=== PATIENT | male | born 1970 | race Caucasian/White ===

== ENCOUNTER 2017-01-02 10:06 | Inpatient (IN) | payer OTHER ==
--- NOTE | 2017-01-02 11:01 | Emergency Department Report ---
HPI - General Chief Complaint: Chest Pain Time Seen by Provider: 01/02/17 10:49 - HPI HPI: Room 10 The patient is a 46-year-old male presenting with a chief complaint of chest pain. The patient states he was at work when he smelled "a chemical" in the air which made him feel dizzy. The patient states he lost consciousness and when he came to he had pain in the substernal chest described as sharp in nature. Patient admits to shortness of breath and diaphoresis with this chest pain. Patient states she became nauseous but did not vomit. The patient states she still has chest pain and gives it a score of 6/10. The patient states his last stress test occurred in over 10 years ago. The patient states she's never had a cardiac catheterization Location: Chest, see above Duration: Constant Quality: Sharp Severity: 6/10 Modifying factors: [see above] Context: [see above] Mode of transportation: [not driving] ED Past Medical Hx - Past Medical History Previous Medical History?: Yes Hx Hypertension: Yes Hx Seizures: Yes Hx Asthma: Yes - Surgical History Past Surgical History?: No Additional Surgical History: Jersey Foot - Family History Family history: no significant - Social History Smoking Status: Never Smoker Substance Use Type: None - Medications Home Medications: Home Medications Medication Instructions Recorded Confirmed Last Taken Type No Known Home Medications [No 01/02/17 01/02/17 Unknown History Reported Home Medications] ED Review of Systems ROS: Stated complaint: INHALATION OF CHEMICALS Other details as noted in HPI Comment: All other systems reviewed and negative Constitutional: diaphoresis Eyes: denies: eye pain, eye discharge, vision change ENT: denies: ear pain, throat pain Respiratory: shortness of breath Cardiovascular: chest pain Endocrine: no symptoms reported Gastrointestinal: nausea. denies: vomiting Genitourinary: denies: urgency, dysuria Musculoskeletal: denies: back pain, joint swelling, arthralgia Skin: denies: rash, lesions Neurological: other (dizziness, syncope) Psychiatric: denies: anxiety, depression Hematological/Lymphatic: denies: easy bleeding, easy bruising Physical Exam - Physical Exam Vital Signs: Vital Signs 01/02/17 10:36 Temperature 98.5 F Pulse Rate 85 Respiratory 20 Rate Blood Pressure 174/113 O2 Sat by Pulse 97 Oximetry Physical Exam: GENERAL: The patient is well-developed well-nourished male lying on stretcher not appearing to be in acute distress. [] HEENT: Normocephalic. Atraumatic. Extraocular motions are intact. Patient has moist mucous membranes. NECK: Supple. Trachea midline CHEST/LUNGS: Clear to auscultation. There is no respiratory distress noted. HEART/CARDIOVASCULAR: Regular. There is no tachycardia. There is no gallop rub or murmur. ABDOMEN: Abdomen is soft, nontender. Patient has normal bowel sounds. There is no abdominal distention. SKIN: There is no rash. There is no edema. There is no diaphoresis. NEURO: The patient is awake, alert, and oriented. The patient is cooperative. The patient has no focal neurologic deficits. The patient has normal speech. Cranial nerves II through XII grossly intact no drift. MUSCULOSKELETAL: There is no evidence of acute injury. ED Course Vital Signs 01/02/17 10:36 Temperature 98.5 F Pulse Rate 85 Respiratory 20 Rate Blood Pressure 174/113 O2 Sat by Pulse 97 Oximetry - Consultations Consultation #1: 01/02/17 12:02 Case discussed with hospitalist Dr. Pena. Recommends consulting cardiology. Cardiology paged 01/02/17 12:[address] Samuel ED Medical Decision Making - Lab Data Result diagrams: 01/02/17 10:51 01/02/17 10:51 Laboratory Tests 01/02/17 01/02/17 01/02/17 10:51 10:51 11:00 WBC 9.2 RBC 4.81 Hgb 14.1 Hct 42.4 MCV 88 MCH 29 MCHC 33 RDW 15.0 Lymph % (Auto) 17.2 Maury % (Auto) 6.9 Eos % (Auto) 1.2 Baso % (Auto) 0.5 Lymph # 1.6 Maury # 0.6 Eos # 0.1 Baso # 0.0 Seg Neutrophils % 74.2 H Seg Neutrophils # 6.8 PT 13.4 INR 1.03 APTT 23.1 L Sodium 141 Potassium 4.2 Chloride 101.9 Carbon Dioxide 24 Anion Gap 19 BUN 24 H Creatinine 1.2 Estimated GFR > 60 BUN/Creatinine Ratio 20.00 Glucose 94 Calcium 9.2 Troponin T < 0.010 - EKG Data -: EKG Interpreted by Mn EKG shows normal: sinus rhythm Rate: normal - EKG Data When compared to previous EKG there are: previous EKG unavailable Interpretation: nonspecific ST-T wave vesna (T-wave inversion in lead 3 which is new compared to EKG performed earlier by EMS) - Radiology Data Radiology results: image reviewed (chest x-ray) interpreted by me: Chest x-ray-no focal infiltrates, no pneumothorax - Differential Diagnosis ACS, vasovagal syncope, pericarditis, GERD Critical care attestation.: If time is entered above; I have spent that time in minutes in the direct care of this critically ill patient, excluding procedure time. ED Disposition Clinical Impression: Chest pain Disposition: OP ADMITTED IP TO THIS HOSP Is pt being admited?: Yes Does the pt Need Aspirin: Yes Condition: Fair Instructions: Chest Pain (ED) Referrals: PRIMARY CARE, [Primary Care Provider] - 3-5 Days Time of Disposition: 11:59 (hospitalist paged)
[2017-01-02] MEDS ORDERED: ZOFRAN IV ONE (11:03)
[2017-01-02] MEDS ORDERED: MORPHINE IV ONE (11:03)
[2017-01-02] MEDS ORDERED: NITRO-BID 2% TP ONE (11:03)
[2017-01-02] MEDS ORDERED: ASPIRIN PO ONE (11:09)
[2017-01-02 11:12] LABS: Basophils % (Auto) 0.5 % (0.0-1.8); Eosinophils % (Auto) 1.2 % (0.0-4.3); Hematocrit 42.4 % (35.5-45.6); Hemoglobin 14.1 gm/dl (11.8-15.2); Mean Corpuscular HGB Conc 33 % (32-34); Mean Corpuscular Hemoglobin 29 pg (28-32); Mean Corpuscular Volume 88 fl (84-94); Red Blood Count 4.81 M/mm3 (3.65-5.03); White Blood Count 9.2 K/mm3 (4.5-11.0)
[2017-01-02 11:21] LABS: INR 1.03 (0.87-1.13)
[2017-01-02 11:22] LABS: Partial Thromboplastin Time 23.1 Sec. (24.2-36.6)
[2017-01-02 11:28] LABS: Anion Gap 19 mmol/L; Blood Urea Nitrogen 24 mg/dL (9-20); Calcium 9.2 mg/dL (8.4-10.2); Carbon Dioxide 24 mmol/L (22-30); Chloride 101.9 mmol/L (98-107); Glucose 94 mg/dL (75-100); Potassium 4.2 mmol/L (3.6-5.0); Sodium 141 mmol/L (137-145)
--- NOTE | 2017-01-02 11:42 | XRay Report ---
AP CHEST: HISTORY: chest pain AP view of the chest demonstrates a normal mediastinal and cardiac contour with clear lungs and normal bony and soft tissue structures. IMPRESSION: Unremarkable AP chest.
[2017-01-02 12:24] LABS: Platelet Count 127 K/mm3 (140-440)
[2017-01-02] MEDS ORDERED: SODIUM CHLORIDE FLUSH SYRINGE 10 ML IV PRN (13:26)
[2017-01-02] MEDS ORDERED: NITROSTAT SL PRN (13:26)
[2017-01-02] MEDS ORDERED: TYLENOL PO PRN (13:26)
[2017-01-02] MEDS ORDERED: MILK OF MAGNESIA PO PRN (13:26)
[2017-01-02] MEDS ORDERED: DULCOLAX PR PRN (13:26)
--- NOTE | 2017-01-02 13:48 | History and Physical Report ---
History of Present Illness Date of examination: 01/02/17 Date of admission: 01/02/17 12:24 Chief complaint: Chest Pain History of present illness: Patient is 46 years old with Hx of HTN,Asthma, Sleep apnea. Patient presents to Ed today with chest pain. Patient states he smelled a chemical at work which caused him dizzy. He described the dizziness as feeling nauseated and passed out. At that time she noticed the abrupt onset 5 minute of chest pain onset which she describes as dull and aching in character. The character pain began in the left para-sternal area does not radiated. His discomfort was accompanied by shortness of breath, sweating, nausea, but no vomiting. The pain lasted approximately 1 to 5 minutes. patient requested for psychiatric help and he reported that has been depressed for the last 10 years. Past History Past Medical History: hypertension, seizures, other (Asthma) Social history: () Family history: CAD, hypertension Medications and Allergies Allergies Allergy/AdvReac Type Severity Reaction Status Date / Time No Known Allergies Allergy Unverified 01/02/17 10:45 Home Medications Medication Instructions Recorded Confirmed Last Taken Type No Known Home Medications [No 01/02/17 01/02/17 Unknown History Reported Home Medications] Review of Systems Constitutional: no weight loss, no weight gain, no fever, no chills Ears, nose, mouth and throat: no tinnitis, no nose pain, no nasal congestion Cardiovascular: syncope, no chest pain, no orthopnea, no palpitations Respiratory: no cough, no cough with sputum, no excessive sputum Gastrointestinal: no abdominal pain, no nausea, no vomiting, no diarrhea Genitourinary Male: no dysuria, no hematuria, no flank pain Musculoskeletal: no neck stiffness, no neck pain, no shooting arm pain Integumentary: no rash, no pruritis, no redness, no sores Neurological: no head injury, no paralysis, no weakness, no parathesias Psychiatric: no anxiety, no memory loss, no change in sleep habits, no sleep disturbances, no insomnia Endocrine: no cold intolerance, no heat intolerance, no polyphagia Hematologic/Lymphatic: no easy bruising, no easy bleeding Allergic/Immunologic: no urticaria Exam - Constitutional Vitals: Temp Pulse Resp BP Pulse Ox 98.5 F 78 14 190/121 98 01/02/17 10:36 01/02/17 11:50 01/02/17 11:50 01/02/17 11:50 01/02/17 11:50 General appearance: Present: no acute distress, well-nourished - EENT Eyes: Present: PERRL, EOM intact ENT: hearing intact, clear oral mucosa - Neck Neck: Present: supple, normal ROM - Respiratory Respiratory effort: normal - Cardiovascular Heart Sounds: Present: S1 & S2. Absent: rub, click - Extremities Extremities: pulses symmetrical, No edema Peripheral Pulses: within normal limits - Abdominal General gastrointestinal: Present: soft, non-tender Male genitourinary: Present: deferred - Rectal Rectal Exam: deferred - Integumentary Integumentary: Present: clear, warm, dry - Musculoskeletal Musculoskeletal: strength equal bilaterally - Psychiatric Psychiatric: appropriate mood/affect - Neurologic Neurologic: CNII-XII intact, moves all extremities Results - Labs CBC & Chem 7: 01/02/17 10:51 01/02/17 10:51 Labs: Laboratory Last Values WBC 9.2 K/mm3 (4.5-11.0) 01/02/17 10:51 RBC 4.81 M/mm3 (3.65-5.03) 01/02/17 10:51 Hgb 14.1 gm/dl (11.8-15.2) 01/02/17 10:51 Hct 42.4 % (35.5-45.6) 01/02/17 10:51 MCV 88 fl (84-94) 01/02/17 10:51 MCH 29 pg (28-32) 01/02/17 10:51 MCHC 33 % (32-34) 01/02/17 10:51 RDW 15.0 % (13.2-15.2) 01/02/17 10:51 Plt Count 127 K/mm3 (140-440) L 01/02/17 10:51 Lymph % (Auto) 17.2 % (13.4-35.0) 01/02/17 10:51 Desha % (Auto) 6.9 % (0.0-7.3) 01/02/17 10:51 Eos % (Auto) 1.2 % (0.0-4.3) 01/02/17 10:51 Baso % (Auto) 0.5 % (0.0-1.8) 01/02/17 10:51 Lymph # 1.6 K/mm3 (1.2-5.4) 01/02/17 10:51 Desha # 0.6 K/mm3 (0.0-0.8) 01/02/17 10:51 Eos # 0.1 K/mm3 (0.0-0.4) 01/02/17 10:51 Baso # 0.0 K/mm3 (0.0-0.1) 01/02/17 10:51 Seg Neutrophils % 74.2 % (40.0-70.0) H 01/02/17 10:51 Seg Neutrophils # 6.8 K/mm3 (1.8-7.7) 01/02/17 10:51 PT 13.4 Sec. (12.2-14.9) 01/02/17 11:00 INR 1.03 (0.87-1.13) 01/02/17 11:00 APTT 23.1 Sec. (24.2-36.6) L 01/02/17 11:00 Sodium 141 mmol/L (137-145) 01/02/17 10:51 Potassium 4.2 mmol/L (3.6-5.0) 01/02/17 10:51 Chloride 101.9 mmol/L (98-107) 01/02/17 10:51 Carbon Dioxide 24 mmol/L (22-30) 01/02/17 10:51 Anion Gap 19 mmol/L 01/02/17 10:51 BUN 24 mg/dL (9-20) H 01/02/17 10:51 Creatinine 1.2 mg/dL (0.8-1.5) 01/02/17 10:51 Estimated GFR > 60 ml/min 01/02/17 10:51 BUN/Creatinine Ratio 20.00 % 01/02/17 10:51 Glucose 94 mg/dL (75-100) 01/02/17 10:51 Calcium 9.2 mg/dL (8.4-10.2) 01/02/17 10:51 Troponin T < 0.010 ng/mL (0.00-0.029) 01/02/17 10:51 Phenytoin 1.2 mg/L (10.0-20.0) L 01/02/17 11:12 - Imaging and Cardiology EKG: report reviewed (T-wave inversion in lead 3 compared to EKG earlier by EMS) Chest x-ray: report reviewed (Unremarkable) Assessment and Plan Assessment and plan: ASSESSMENT/PLAN 1. Chest Pain we will admit to Telemetry unit for continues cardiac observation 12 lead EKG obtained, we also get another EKG in order for any changes that have taken since the first obtained. we will do serial cardiac enzymes IV fluid hydration Lexiscan pending Cardiology consulted X-ray unremarkable 2.Syncope IV fluid Mammal Keeper consulted 3.Hypertension Will continue on home medication 4.Asthma On Bronchodilator's 5. Depression psychiatry consulted for further evaluation DVT/GI Prophylaxis on Lovenox Advance Directives: Yes VTE prophylaxis?: Chemical Plan of care discussed with patient/family: Yes
[2017-01-02] MEDS ORDERED: D5NS 1,000 ML IV SCH (14:00)
[2017-01-02] MEDS: ASPIRIN PO SCH (15:50)
[2017-01-02] MEDS: DUONEB 0.5 MG-3 MG/3 ML SOLN IH SCH ×2 (16:10→21:23)
[2017-01-02] MEDS: LOVENOX SUB-Q SCH (16:37)
[2017-01-02 17:09] LABS: Creatine Kinase MB 2.6 ng/mL (0.0-4.0)
[2017-01-02 17:11] LABS: Creatine Kinase 243 units/L (55-170)
--- NOTE | 2017-01-02 17:19 | Admit Criteria Form ---
Admission Criteria Documentation: CARDIOLOGY GRG Clinical Indications for Admission to Inpatient Care ( Place 'X' for any and all applicable criteria): Hospital admission is needed for appropriate care of the patient because of ANY ONE of the following (1): [ ] I. Hemodynamic instability as indicated by ALL of the following (1)(2)(3) (4)(5) [ ]a) Vital signs or other findings not as expected for chronic patient condition or baseline [ ]b) Instability indicated by ANY ONE of the following: [ ]i) Hypotension [ ]ii) Symptomatic Tachycardia unresponsive to treatment ( e.g., analgesia, fluids, sedation as indicated) [ ]iii) Inadequate perfusion indicated by ANY ONE of the following: [ ] 1) Lactic acidosis (> 2 mmol/L) [ ] 2) New abnormal capillary refill (> 3 seconds) [ ] 3) Reduced urine output [ ] 4) New altered mental status [ ]iv) Orthostatic vital sign changes unresponsive to treatment (e.g., fluids) [ ]v) IV inotropic or vasopressor medication required to maintain adequate blood pressure or perfusion [ ] II. Severe heart failure as indicated by ANY ONE of the following(17)(18) [ ]a) Respiratory distress [ ]b) Hypotension [ ]c) Anasarca (refractory to outpatient therapy) [ ]d) Cardiac arrhythmias of immediate concern [ ]e) Myocardial ischemia [ ] III. Cardiac arrhythmias or findings of immediate concern indicated by ANY ONE of the following (19)(20): [ ] a) Heart rhythms that are inherently dangerous or unstable indicated by ANY ONE of the following (21)(22)(23): [ ] i) Resuscitated ventricular fibrillation or cardiac arrest [ ] ii) Ventricular escape rhythm [ ] iii) Sustained ventricular tachycardia (30 seconds or more of ventricular rhythm at greater than 100 beats per minute) [ ] iv) Nonsustained ventricular tachycardia and ANY ONE of the following: [ ] 1) Suspected cardiac ischemia as cause or consequence of ventricular tachycardia [ ] 2) In setting of acute myocarditis [ ] b) Unstable cardiac conduction defects indicated by ANY ONE of the following(23)(24)(25) [ ] i) Type II second-degree atrioventricular block [ ]ii) Third-degree atrioventricular block [ ]iii) New-onset left bundle branch block with suspected myocardial ischemia [ ]c) Any heart rhythm and ANY ONE of the following (21)(22)(26)(27) (28) [ ] i) Continuous long-term ECG monitoring needed (e.g., initiation of drug requiring monitoring for more than 24 hours) [ ] ii) Patient has automatic implanted cardioverter defibrillator that is repeatedly firing, malfunctioning, or in need of immediate adjustment of settings beyond the scope of ambulatory or observation care [ ]d) Heart rhythms of concern due to ANY ONE of the following: [ ] i) Hypotension [ ] ii) Respiratory distress [ ] iii) Association with other significant symptoms (e.g., bradycardia with syncope or ongoing dizziness, supraventricular tachycardia with chest pain (14)(15)(17) [ ] IV. Monitoring for cardiac contusion beyond the scope of observation care needed [A](30)(31)(32) [ ] V. Surgical or device complication (e.g., valve replacement complication , pacemaker dysfunction) (35)(41)(44)(45)(46) [ ] . Inpatient palliative care needed. [B](49) Also use Inpatient Palliative Care Criteria [ ] VII. Nonbacterial thrombotic (marantic) endocarditis (36)(43)(47)(48) [X ] VIII. Cardiology condition, symptom, or finding for which emergency and observation care has failed or are not considered appropriate. [ ] IX. Acute valvular disease requiring inpatient as indicated by ANY ONE of the following (41) [ ]a) Acute valvular regurgitation (42) [ ]b) Noninfectious valvulitis (43) [ ]c) Obstructive valve thrombosis [ ]d) Paravalvular leak [ ]e) Other significant valvular disorder remaining after emergency or observation level of care (as appropriate) [ ]X. Pericardial disease requiring inpatient treatment as indicated by ANY ONE of the following (33)(34)(35)(36)(37) [ ]a) Suspected tamponade (38)(39)(40) [ ]b) Hemopericardium [ ]c) Other significant pericardial disorder remaining after emergency or observation level of care (as appropriate) [ ] XI. Cardiac ischemia beyond scope of emergency and observation care. [ ] XII. Hypertension requiring inpatient treatment as indicated by ANY ONE of the following (6)(7)(8) [ ]a) SBP greater than 220 mm Hg or DBP greater than 120 mmHg despite treatment [ ]b) SBP greater than 140 mm Hg or DBP greater than 100 mm Hg with evidence of acute end organ damage as indicated by ANY ONE of the following [ ] i) Altered mental status [ ] ii) Acute renal failure as indicated by new onset of ANY ONE of the following (9)(10)(11)(12)(13) [ ]1) 3-fold rise in serum creatinine from baseline [ ]2) Serum creatinine greater than 4 mg/dL ( 354 micromoles/L) with acute rise greater than 0.5 mg/dL (44.2 micromoles/L) [ ]3) Reduction of more than 75% in estimated glomerular filtration rate from baseline [ ]4) Estimated glomerular filtration rate less than 35 mL/min/1.73m2 (0.59 mL/sec/1.73m2) in child up to 18 years of age [ ]5) Cessation of urine output indicated by ALL of the following [ ]A. Adequate volume status [ ]B. Inadequate urine output as indicated by ANY ONE of the following [ ]a. Urine output less than 0.3 mL/kg/hr for 24 hours [ ]b. Anuria (urine output less than 0.1 mL/kg/hr) for 12 hours [ ] iii) Aortic dissection [ ] iv) Myocardial Ischemia [ ] v) Left ventricular heart failure [ ]vi) Retinal Hemorrhage [ ]vii) Other significant finding [ ]c) Hypertension in child requiring inpatient treatment as indicated by ALL of the following(14)(15)(16) [ ] i) Outpatient treatment not effective, not available, or not appropriate [ ]ii) SBP or DBP greater than 95th percentile for age [ ]iii) Evidence of acute end organ damage as indicated by ANY ONE of the following [ ]1) Altered mental status [ ]2) Acute renal failure as indicated by new onset of ANY ONE of the following(9)(10)(11)(12)(13) [ ]A. 3-fold rise in serum creatinine from baseline [ ]B. Serum creatinine greater than 4 mg/dL (354 micromoles/L) with acute rise greater than 0.5 mg/dL (44.2 micromoles/L) [ ]C. Reduction of more than 75% in estimated glomerular filtration rate from baseline [ ]D. Estimated glomerular filtration rate less than 35 mL/min/1.73m2 (0.59 mL/sec/1.73m2) in child up to 18 years of age [ ]E. Cessation of urine output indicated by ALL of the following [ ]a. Adequate volume status [ ]b. Inadequate urine output as indicated by ANY ONE of the following [ ]i) Urine output less than 0.3 mL/kg/hr for 24 hours [ ]ii) Anuria ( urine output less than 0.1 mL/kg/hr) for 12 hours [ ]3) Severe headache [ ]4) Visual disturbance [ ]5) Retinal hemorrhage [ ]6) Other significant finding [ ]XIII. Complications of transplanted heart indicated by ANY ONE of the following(61): [ ]a) Acute graft rejection requiring inpatient management (eg, intravenous immunosuppression)(62)(63) [ ]b) Acute graft heart failure indicated by ANY ONE of the following(64): [ ]i) Hemodynamic instability [ ]ii) Cardiac arrhythmias of immediate concern [ ]iii) Pulmonary edema that is very severe (eg, mechanical ventilation needed, imminent or likely, need for 100% oxygen to keep oxygen saturation above 90%) [ ]iv) Pulmonary edema that is persistent as indicated by ALL of the following: [ ]1) New need for oxygen therapy to keep oxygen saturation above 90% (or increased FiO2 need from baseline) [ ]2) Has not improved sufficiently with emergency department or observation care IV diuretics or other heart failure treatments[E] [ ]v) Altered mental status that is severe or persistent [ ]vi) Increased creatinine (new on laboratory test) with reduction of more than 50% in estimated glomerular filtration rate from baseline [ ]vii) Progressively (ongoing) rising creatinine (known from past laboratory test) with reduction of more than 25% in estimated glomerular filtration rate from baseline [ ]viii) Acute renal failure [ ]ix) Acute peripheral ischemia (eg, examination shows pulseless, cool, mottled, or cyanotic extremity) [ ]x) Pulmonary artery catheter monitoring needed [ ]xi) Other sign or symptom of heart failure requiring inpatient treatment (ie, too severe or not responsive to outpatient and observation care treatment) [ ]c) Infection requiring inpatient management (eg, Hemodynamic instability, need for intravenous antimicrobial treatment)(66)(67)(68)(69)(70) [ ]d) Cardiac allograft vasculopathy requiring inpatient management ( eg evidence of cardiac ischemia)(71) [ ]e) Other complication of transplanted heart (eg, stroke, severe pulmonary hypertension, severe valvular dysfunction) requiring inpatient management(72) The original [facility] [employer] content created by [facility] [employer] has been revised. The portions of the content which have been revised are identified through the use of italic text or in bold, and [facility] has neither reviewed nor approved the modified material. All other unmodified content is copyright [facility] [employer]. Please see references footnoted in the original [facility] [employer] edition 2016 Admission Criteria Met: Yes
[2017-01-02] MEDS: ZOFRAN IV PRN (20:13)
[2017-01-02] MEDS: MORPHINE IV PRN (20:14)
[2017-01-02 21:51] LABS: Creatine Kinase MB 2.5 ng/mL (0.0-4.0)
[2017-01-02 21:52] LABS: Creatine Kinase 224 units/L (55-170)
[2017-01-03] MEDS: DUONEB 0.5 MG-3 MG/3 ML SOLN IH SCH ×4 (02:03→21:16)
[2017-01-03] MEDS ORDERED: LEXISCAN IV ONE (08:03)
[2017-01-03 08:21] LABS: Basophils % (Auto) 0.2 % (0.0-1.8); Eosinophils % (Auto) 1.4 % (0.0-4.3); Hemoglobin 13.7 gm/dl (11.8-15.2); Mean Corpuscular HGB Conc 34 % (32-34); Mean Corpuscular Hemoglobin 29 pg (28-32); Mean Corpuscular Volume 87 fl (84-94); Platelet Count 131 K/mm3 (140-440); Red Blood Count 4.72 M/mm3 (3.65-5.03); Red Cell Distribution Width 14.8 % (13.2-15.2); White Blood Count 7.3 K/mm3 (4.5-11.0)
[2017-01-03 08:39] LABS: Alanine Aminotransferase 16 units/L (7-56); Albumin 3.9 g/dL (3.9-5); Albumin/Globulin Ratio 1.6 %; Alkaline Phosphatase 103 units/L (35-129); Anion Gap 17 mmol/L; BUN/Creatinine Ratio 12.72; Blood Urea Nitrogen 14 mg/dL (9-20); Calcium 9.1 mg/dL (8.4-10.2); Carbon Dioxide 28 mmol/L (22-30); Chloride 101.1 mmol/L (98-107); Glucose 109 mg/dL (75-100); Potassium 3.6 mmol/L (3.6-5.0); Sodium 142 mmol/L (137-145); Total Protein 6.4 g/dL (6.3-8.2)
[2017-01-03] MEDS ORDERED: ZOFRAN ONE (08:46)
[2017-01-03] MEDS: ZOFRAN IV PRN (08:48)
--- NOTE | 2017-01-03 11:09 | Consultation ---
History of Present Illness Consult date: 01/03/17 Consult reason: syncope History of present illness: This is a 46 year old obese -Chinese male who is presenting with chest pain which according after inhaling some chemical at work which caused some dizziness no sensation and questionable syncope. Probably to this patient denies any exertional chest pain, or cardiac problems in the past. Past History Past Medical History: hypertension, seizures, other (Asthma) Social history: () Family history: CAD, hypertension Medications and Allergies Allergies Allergy/AdvReac Type Severity Reaction Status Date / Time No Known Allergies Allergy Unverified 01/02/17 10:45 Home Medications Medication Instructions Recorded Confirmed Last Taken Type No Known Home Medications [No 01/02/17 01/02/17 Unknown History Reported Home Medications] Active Meds: Active Medications Acetaminophen (Tylenol) 650 mg PO Q4H PRN PRN Reason: Pain MILD(1-3)/Fever >100.5/SHORE Last Admin: 01/02/17 20:13 Dose: 650 mg Albuterol/Ipratropium (Duoneb 0.5 Mg-3 Mg/3 Ml Soln) 1 ampul IH Q6HRT [facility] Last Admin: 01/03/17 10:41 Dose: 1 ampul Aspirin (Aspirin) 325 mg PO QDAY [facility] Last Admin: 01/02/17 15:50 Dose: Not Given Bisacodyl (Dulcolax) 10 mg [place] QDAY PRN PRN Reason: Constipation unrelieved by MOM Enoxaparin Sodium (Lovenox) 40 mg SUB-Q QDAY [facility] Last Admin: 01/02/17 16:37 Dose: 40 mg Dextrose/Sodium Chloride (D5ns) 1,000 mls @ 75 mls/hr IV DIRECT [facility] Last Admin: 01/02/17 16:47 Dose: 75 mls/hr Magnesium Hydroxide (Milk Of Magnesia) 30 ml PO Q4H PRN PRN Reason: Constipation Morphine Sulfate (Morphine) 2 mg IV Q4H PRN PRN Reason: Pain, Moderate (4-6) Last Admin: 01/02/17 20:14 Dose: 2 mg Nitroglycerin (Nitrostat) 0.4 mg SL .Q5MIN PRN PRN Reason: Chest Pain Ondansetron HCl (Zofran) 4 mg IV Q8H PRN PRN Reason: N/V unrelieved by Reglan Last Admin: 01/03/17 08:48 Dose: 4 mg Pneumococcal Polyvalent Vaccine (Pneumovax 23) 0.5 ml IM .ONCE ONE Stop: 01/03/17 12:01 Sodium Chloride (Sodium Chloride Flush Syringe 10 Ml) 10 ml IV PRN PRN PRN Reason: LINE FLUSH Physical Examination Vital Signs BP 174/113 01/02/17 10:05 General appearance: no acute distress, well-nourished, obese HEENT: Positive: PERRL, Mucus Membranes Moist Neck: Positive: neck supple, trachea midline Cardiac: Positive: Reg Rate and Rhythm, S1/S2. Negative: Audible Murmur Lungs: Positive: clear to auscultation, Normal Breath Sounds Neuro: Positive: Grossly Intact Abdomen: Positive: Soft, Active Bowel Sounds. Negative: Tender, Distended Male genitourinary: Positive: normal Skin: Positive: Clear Incision: Cardiac Cath Site Musculoskeletal: No Pain, Normal Range of Motion Extremities: Present: normal. Absent: edema Results 01/03/17 07:32 01/03/17 07:32 Cardiac Enzymes 01/02/17 01/02/17 01/03/17 Range/Units 16:32 21:00 07:32 AST 18 (5-40) units/L CK-MB (CK-2) 2.6 2.5 (0.0-4.0) ng/mL CBC 01/03/17 Range/Units 07:32 WBC 7.3 (4.5-11.0) K/mm3 RBC 4.72 (3.65-5.03) M/mm3 Hgb 13.7 (11.8-15.2) gm/dl Hct 41.0 (35.5-45.6) % Plt Count 131 L (140-440) K/mm3 Lymph # 1.4 (1.2-5.4) K/mm3 [place] # 0.6 (0.0-0.8) K/mm3 Eos # 0.1 (0.0-0.4) K/mm3 Baso # 0.0 (0.0-0.1) K/mm3 Comprehensive Metabolic Panel 01/03/17 Range/Units 07:32 Sodium 142 (137-145) mmol/L Potassium 3.6 (3.6-5.0) mmol/L Chloride 101.1 (98-107) mmol/L Carbon Dioxide 28 (22-30) mmol/L BUN 14 (9-20) mg/dL Creatinine 1.1 (0.8-1.5) mg/dL Glucose 109 H (75-100) mg/dL Calcium 9.1 (8.4-10.2) mg/dL AST 18 (5-40) units/L ALT 16 (7-56) units/L Alkaline Phosphatase 103 (35-129) units/L Total Protein 6.4 (6.3-8.2) g/dL Albumin 3.9 (3.9-5) g/dL EKG interpretations - Telemetry EKG Rhythm: Sinus Rhythm - EKG Sinus rhythms and dysrhythmias: sinus rhythm Assessment and Plan 1. Atypical chest pain resolved 2. Syncope precipitated by inhaled chemical agent 3. Essential hypertension 4. Seizure disorder 5. Obesity Plan. Patient is currently stable serial cardiac isoenzymes are negative. Patient had Lexiscan MPI done today and this is negative LV ejection fraction is normal. We'll pursue further workup with an event monitor as an outpatient.
[2017-01-03] MEDS ORDERED: PNEUMOVAX 23 IM ONE (12:00)
--- NOTE | 2017-01-03 14:09 | Progress Note ---
Assessment and Plan Assessment and plan: Patient's 46-year-old morbidly obese male with a BMI of 49.2 and history of obstructive sleep apnea not on CPAP, atrial fibrillation on Coumadin and hypertension who presents with chest pain, syncopal episode after inhaling noxious substance there were. After breathing the irritant, he became nauseous , sweaty, fatigue, weak, dizzy and had a transient loss of consciousness followed by chest pain. -Vasovagal syncope most likely -Chest pain: Stress test pending -Atrial fibrillation: Continue anticoagulation With discharged if stress test negative History Interval history: Patient seen and examined. Follow up on chest pain which has resolved. Overnight uneventful. No cp, sob, n/v or severe headaches. Imaging, old records , testing, labs, nursing notes reviewed. Hospitalist Physical - Physical exam Narrative exam: GEN: WDWN, NAD, AWAKE, ALERT, ORIENTATED 3 CVS: RRR, NORMAL S1S2 LUNGS/CHEST: CTA B, NORMAL CHEST EXPANSION B, GOOD AIR ENTRY B ABD: SOFT NTND, GBS, NO REBOUND OR GUARDING EXT/SKIN: NO SIGNIFICANT EDEMA OR RASH MSK: FROM X 4 EXTREMITIES NEURO: CN 2-12 GROSSLY INTACT, NO new FOCAL DEFICITS PSY: CALM - Constitutional Vitals: Temp Pulse Resp BP Pulse Ox 98.8 F 84 18 175/89 97 01/03/17 06:02 01/03/17 10:51 01/03/17 10:51 01/03/17 09:10 01/03/17 10:00 General appearance: Present: no acute distress, well-nourished, obese Results - Labs CBC & Chem 7: 01/03/17 07:32 01/03/17 07:32 Labs: Laboratory Last Values WBC 7.3 K/mm3 (4.5-11.0) 01/03/17 07:32 RBC 4.72 M/mm3 (3.65-5.03) 01/03/17 07:32 Hgb 13.7 gm/dl (11.8-15.2) 01/03/17 07:32 Hct 41.0 % (35.5-45.6) 01/03/17 07:32 MCV 87 fl (84-94) 01/03/17 07:32 MCH 29 pg (28-32) 01/03/17 07:32 MCHC 34 % (32-34) 01/03/17 07:32 RDW 14.8 % (13.2-15.2) 01/03/17 07:32 Plt Count 131 K/mm3 (140-440) L 01/03/17 07:32 Lymph % (Auto) 19.6 % (13.4-35.0) 01/03/17 07:32 [place] % (Auto) 7.8 % (0.0-7.3) H 01/03/17 07:32 Eos % (Auto) 1.4 % (0.0-4.3) 01/03/17 07:32 Baso % (Auto) 0.2 % (0.0-1.8) 01/03/17 07:32 Lymph # 1.4 K/mm3 (1.2-5.4) 01/03/17 07:32 [place] # 0.6 K/mm3 (0.0-0.8) 01/03/17 07:32 Eos # 0.1 K/mm3 (0.0-0.4) 01/03/17 07:32 Baso # 0.0 K/mm3 (0.0-0.1) 01/03/17 07:32 Seg Neutrophils % 71.0 % (40.0-70.0) H 01/03/17 07:32 Seg Neutrophils # 5.2 K/mm3 (1.8-7.7) 01/03/17 07:32 PT 13.4 Sec. (12.2-14.9) 01/02/17 11:00 INR 1.03 (0.87-1.13) 01/02/17 11:00 APTT 23.1 Sec. (24.2-36.6) L 01/02/17 11:00 Sodium 142 mmol/L (137-145) 01/03/17 07:32 Potassium 3.6 mmol/L (3.6-5.0) 01/03/17 07:32 Chloride 101.1 mmol/L (98-107) 01/03/17 07:32 Carbon Dioxide 28 mmol/L (22-30) 01/03/17 07:32 Anion Gap 17 mmol/L 01/03/17 07:32 BUN 14 mg/dL (9-20) 01/03/17 07:32 Creatinine 1.1 mg/dL (0.8-1.5) 01/03/17 07:32 Estimated GFR > 60 ml/min 01/03/17 07:32 BUN/Creatinine Ratio 12.72 % 01/03/17 07:32 Glucose 109 mg/dL (75-100) H 01/03/17 07:32 Calcium 9.1 mg/dL (8.4-10.2) 01/03/17 07:32 Total Bilirubin 0.30 mg/dL (0.1-1.2) 01/03/17 07:32 AST 18 units/L (5-40) 01/03/17 07:32 ALT 16 units/L (7-56) 01/03/17 07:32 Alkaline Phosphatase 103 units/L (35-129) 01/03/17 07:32 Total Creatine Kinase 224 units/L (55-170) H 01/02/17 21:00 CK-MB (CK-2) 2.5 ng/mL (0.0-4.0) 01/02/17 21:00 CK-MB (CK-2) Rel Index 1.1 (0-4) 01/02/17 21:00 Troponin T < 0.010 ng/mL (0.00-0.029) 01/02/17 21:00 Total Protein 6.4 g/dL (6.3-8.2) 01/03/17 07:32 Albumin 3.9 g/dL (3.9-5) 01/03/17 07:32 Albumin/Globulin Ratio 1.6 % 01/03/17 07:32 Phenytoin 1.2 mg/L (10.0-20.0) L 01/02/17 11:12
--- NOTE | 2017-01-03 14:11 | Discharge Summary ---
Providers - Providers Date of Admission: 01/02/17 12:24 Attending physician: IVANA FOX MD 01/02/17 Consult to Cardiac Rehabilitation [CONS] Routine Reason For Exam: Phase I 01/02/17 12:39 Consult to Physician [CONS] Urgent Consulting Provider: SCHUYLER POSEY Reason For Exam: chest pain, dynamic EKG Place consult to:: phone Notified:: y 01/02/17 18:27 Consult to Mental Health [CONS] Routine Reason For Exam: Depression Place consult to:: Psychiatric Notified:: farhat Was contact made?: No Primary care physician: [employer] Hospitalization Condition: Stable Hospital course: Patient's 46-year-old morbidly obese male with a BMI of 49.2 and history of obstructive sleep apnea not on CPAP, atrial fibrillation on Coumadin and hypertension who presents with chest pain, syncopal episode after inhaling noxious substance there were. After breathing the irritant, he became nauseous , sweaty, fatigue, weak, dizzy and had a transient loss of consciousness followed by chest pain. -Vasovagal syncope most likely -Chest pain: Stress test pending -Atrial fibrillation: Continue anticoagulation With discharged if stress test negative Disposition: DISCHARGED TO HOME OR SELFCARE Time spent for discharge: 35 min Core Measure Documentation - Palliative Care Palliative Care/ Comfort Measures: Not Applicable - Core Measures Any of the following diagnoses?: none - VTE Discharge Requirements Deep Vein Thrombosis/Pulmonary Embolism Present on Admission: No Has pt received <5 days of overlap therapy or INR<2.0: No Anticoagulant overlap therapy prescribed at discharge: No Contraindication No Overlap Therapy order at DC: Not Indicated Exam - Physical Exam Narrative exam: GEN: WDWN, NAD, AWAKE, ALERT, ORIENTATED 3 CVS: RRR, NORMAL S1S2 LUNGS/CHEST: CTA B, NORMAL CHEST EXPANSION B, GOOD AIR ENTRY B ABD: SOFT NTND, GBS, NO REBOUND OR GUARDING EXT/SKIN: NO SIGNIFICANT EDEMA OR RASH MSK: FROM X 4 EXTREMITIES NEURO: CN 2-12 GROSSLY INTACT, NO new FOCAL DEFICITS PSY: CALM - Constitutional Vitals: Temp Pulse Resp BP Pulse Ox 98.8 F 84 18 175/89 97 01/03/17 06:02 01/03/17 10:51 01/03/17 10:51 01/03/17 09:10 01/03/17 10:00 Plan Activity: up only with assistance (no strenous activites until cleared by PCP. ) Diet: low salt Follow up with: PRIMARY CARE, [Primary Care Provider] - 3-5 Days
[2017-01-03] MEDS: LOVENOX SUB-Q SCH (15:09)
[2017-01-03] MEDS: ASPIRIN PO SCH (15:09)
--- NOTE | 2017-01-03 16:47 | Consultation ---
History of Present Illness - Reason for Consult Consult date: 01/03/17 Reason for consult: psychiatric evaluation, depression - Chief Complaint Chief complaint: "Things are not going right for me." 46 year old black male initially presented to the hospital for chest pain and was admitted. He was seen for psychiatric evaluation while on the medical floor. Psychiatry was consulted for reports of severe depression and auditory hallucinations of hearing people laughing. He reports being depressed and having AH for years but worse in the past 2 months. He believes people are touching him in his sleep. He states he wants to give up and has attempted to several times in his life. He attempted by walking into traffic in August,. He went to [place] at that time. He describes himself to be unstable and is finding it increasingly difficult to cope with his situation. He has applied for mental health disability. Medications and Allergies Allergies Allergy/AdvReac Type Severity Reaction Status Date / Time No Known Allergies Allergy Unverified 01/02/17 10:45 Home Medications Medication Instructions Recorded Confirmed Last Taken Type No Known Home Medications [No 01/02/17 01/02/17 Unknown History Reported Home Medications] Active Meds: Active Medications Acetaminophen (Tylenol) 650 mg PO Q4H PRN PRN Reason: Pain MILD(1-3)/Fever >100.5/SHORE Last Admin: 01/02/17 20:13 Dose: 650 mg Albuterol/Ipratropium (Duoneb 0.5 Mg-3 Mg/3 Ml Soln) 1 ampul IH Q6HRT [facility] Last Admin: 01/03/17 13:54 Dose: 1 ampul Aspirin (Aspirin) 325 mg PO QDAY [facility] Last Admin: 01/03/17 15:09 Dose: 325 mg Bisacodyl (Dulcolax) 10 mg [place] QDAY PRN PRN Reason: Constipation unrelieved by MOM Enoxaparin Sodium (Lovenox) 40 mg SUB-Q QDAY [facility] Last Admin: 01/03/17 15:09 Dose: 40 mg Dextrose/Sodium Chloride (D5ns) 1,000 mls @ 75 mls/hr IV DIRECT [facility] Last Admin: 01/02/17 16:47 Dose: 75 mls/hr Magnesium Hydroxide (Milk Of Magnesia) 30 ml PO Q4H PRN PRN Reason: Constipation Morphine Sulfate (Morphine) 2 mg IV Q4H PRN PRN Reason: Pain, Moderate (4-6) Last Admin: 01/02/17 20:14 Dose: 2 mg Nitroglycerin (Nitrostat) 0.4 mg SL .Q5MIN PRN PRN Reason: Chest Pain Ondansetron HCl (Zofran) 4 mg IV Q8H PRN PRN Reason: N/V unrelieved by Reglan Last Admin: 01/03/17 08:48 Dose: 4 mg Sodium Chloride (Sodium Chloride Flush Syringe 10 Ml) 10 ml IV PRN PRN PRN Reason: LINE FLUSH Past psychiatric history - Past Medical History Past Medical History: hypertension, seizures, other (obesity) - past Psychiatric treatment and history Psych: Depression psychiatric treatment history: on Cymbalta for depression. Denies previous medication trials At [facility] 08/2016 10+ previous impulsive suicide attempts Includes: cutting wrists more than once overdosing -ICU walking into traffic Denies illicit substance or alcohol use - Social History Social history: (does not live with . Moved from [place] 06/2016), alcohol abuse (denies), prescription drug abuse (denies), IV drug use (denies. ) , other (lives in a room) Mental Status Exam - Vital signs Last Vital Signs Temp 98.8 F 01/03/17 06:02 Pulse 92 H 01/03/17 15:18 Resp 20 01/03/17 15:00 BP 175/89 01/03/17 09:10 Pulse Ox 99 01/03/17 15:00 - Exam Orientation: time, place, person Affect: depressed Mood: other (incongruent) Thought content: other (SI. No HI) Thought Process: Circumstantial Perceptions: auditory (hears laughing), tactile (only during sleep. Has untreated sleep apnea) Speech: pressured Concentration: focused Motor activity: normal Level of consciousness: alert Memory: Intact Sleep Symptoms: Difficulty Falling Asleep Appetite: increased Interaction: cooperative Results Result Diagrams: 01/03/17 07:32 01/03/17 07:32 Abnormal lab results 01/02/17 01/02/17 01/03/17 Range/Units 16:32 21:00 07:32 Plt Count 131 L (140-440) K/mm3 [place] % (Auto) 7.8 H (0.0-7.3) % Seg Neutrophils % 71.0 H (40.0-70.0) % Glucose (75-100) mg/dL Total Creatine Kinase 243 H 224 H (55-170) units/L 01/03/17 Range/Units 07:32 Plt Count (140-440) K/mm3 [place] % (Auto) (0.0-7.3) % Seg Neutrophils % (40.0-70.0) % Glucose 109 H (75-100) mg/dL Total Creatine Kinase (55-170) units/L All other labs normal. Assessment and Plan Assessment and plan: Impression: Suicidal risk is high and stabilization is necessary in a psychiatric facility Major depressive disorder, recurrent, severe, with psychotic features Consider sleep paralysis/parasomnia causing the perception of being touched while asleep Medical: Epilepsy- on Dilantin (last seizure was 1 month ago) Sleep apnea Obesity HTN Recommendation: 1013 and transfer to inpatient psychiatric facility for stabilization Continue Cymbalta 60mg daily for depressive symptoms Add Abilify 5mg daily as an adjunctive agent for depression. Educated on risks and benefits. Discussed obesity/cholesterol
[2017-01-03] MEDS: ABILIFY PO SCH (22:13)
[2017-01-04] MEDS: DUONEB 0.5 MG-3 MG/3 ML SOLN IH SCH ×2 (08:15→21:13)
[2017-01-04] MEDS: ASPIRIN PO SCH (10:26)
[2017-01-04] MEDS: LOVENOX SUB-Q SCH (10:28)
[2017-01-04] MEDS: CYMBALTA PO SCH (10:35)
--- NOTE | 2017-01-04 11:03 | Progress Note ---
Assessment and Plan Assessment and plan: Patient's 46-year-old morbidly obese male with a BMI of 49.2 and history of obstructive sleep apnea not on CPAP, atrial fibrillation on Coumadin and hypertension who presents with chest pain, syncopal episode after inhaling noxious substance there were. After breathing the irritant, he became nauseous , sweaty, fatigue, weak, dizzy and had a transient loss of consciousness followed by chest pain. -Vasovagal syncope most likely -Chest pain: Stress test negative per Dr. Samuel -Atrial fibrillation: Continue anticoagulation With discharged if stress test negative===>d/c held due to below "Things are not going right for me." 46 year old black male initially presented to the hospital for chest pain and was admitted. He was seen for psychiatric evaluation while on the medical floor. Psychiatry was consulted for reports of severe depression and auditory hallucinations of hearing people laughing. He reports being depressed and having AH for years but worse in the past 2 months. He believes people are touching him in his sleep. He states he wants to give up and has attempted to several times in his life. He attempted by walking into traffic in August,. He went to [place] at that time. He describes himself to be unstable and is finding it increasingly difficult to cope with his situation. He has applied for mental health disability. Recommendation: 1013 and transfer to inpatient psychiatric facility for stabilization, Continue Cymbalta 60mg daily for depressive symptoms, Add Abilify 5mg daily as an adjunctive agent for depression. Educated on risks and benefits. Discussed obesity/cholesterol History Interval history: Patient seen and examined. Follow up on chest pain which has resolved. Overnight uneventful. No cp, sob, n/v or severe headaches. Imaging, old records , testing, labs, nursing notes reviewed. Hospitalist Physical - Physical exam Narrative exam: GEN: WDWN, NAD, AWAKE, ALERT, ORIENTATED 3 CVS: RRR, NORMAL S1S2 LUNGS/CHEST: CTA B, NORMAL CHEST EXPANSION B, GOOD AIR ENTRY B ABD: SOFT NTND, GBS, NO REBOUND OR GUARDING EXT/SKIN: NO SIGNIFICANT EDEMA OR RASH MSK: FROM X 4 EXTREMITIES NEURO: CN 2-12 GROSSLY INTACT, NO new FOCAL DEFICITS PSY: CALM - Constitutional Vitals: Temp Pulse Resp BP Pulse Ox 98.4 F 88 18 160/83 94 01/04/17 09:53 01/04/17 09:53 01/04/17 09:53 01/04/17 09:53 01/04/17 09:53 General appearance: Present: no acute distress, well-nourished, obese Results - Labs CBC & Chem 7: 01/03/17 07:32 01/03/17 07:32 Labs: Laboratory Last Values WBC 7.3 K/mm3 (4.5-11.0) 01/03/17 07:32 RBC 4.72 M/mm3 (3.65-5.03) 01/03/17 07:32 Hgb 13.7 gm/dl (11.8-15.2) 01/03/17 07:32 Hct 41.0 % (35.5-45.6) 01/03/17 07:32 MCV 87 fl (84-94) 01/03/17 07:32 MCH 29 pg (28-32) 01/03/17 07:32 MCHC 34 % (32-34) 01/03/17 07:32 RDW 14.8 % (13.2-15.2) 01/03/17 07:32 Plt Count 131 K/mm3 (140-440) L 01/03/17 07:32 Lymph % (Auto) 19.6 % (13.4-35.0) 01/03/17 07:32 [place] % (Auto) 7.8 % (0.0-7.3) H 01/03/17 07:32 Eos % (Auto) 1.4 % (0.0-4.3) 01/03/17 07:32 Baso % (Auto) 0.2 % (0.0-1.8) 01/03/17 07:32 Lymph # 1.4 K/mm3 (1.2-5.4) 01/03/17 07:32 [place] # 0.6 K/mm3 (0.0-0.8) 01/03/17 07:32 Eos # 0.1 K/mm3 (0.0-0.4) 01/03/17 07:32 Baso # 0.0 K/mm3 (0.0-0.1) 01/03/17 07:32 Seg Neutrophils % 71.0 % (40.0-70.0) H 01/03/17 07:32 Seg Neutrophils # 5.2 K/mm3 (1.8-7.7) 01/03/17 07:32 PT 13.4 Sec. (12.2-14.9) 01/02/17 11:00 INR 1.03 (0.87-1.13) 01/02/17 11:00 APTT 23.1 Sec. (24.2-36.6) L 01/02/17 11:00 Sodium 142 mmol/L (137-145) 01/03/17 07:32 Potassium 3.6 mmol/L (3.6-5.0) 01/03/17 07:32 Chloride 101.1 mmol/L (98-107) 01/03/17 07:32 Carbon Dioxide 28 mmol/L (22-30) 01/03/17 07:32 Anion Gap 17 mmol/L 01/03/17 07:32 BUN 14 mg/dL (9-20) 01/03/17 07:32 Creatinine 1.1 mg/dL (0.8-1.5) 01/03/17 07:32 Estimated GFR > 60 ml/min 01/03/17 07:32 BUN/Creatinine Ratio 12.72 % 01/03/17 07:32 Glucose 109 mg/dL (75-100) H 01/03/17 07:32 Calcium 9.1 mg/dL (8.4-10.2) 01/03/17 07:32 Total Bilirubin 0.30 mg/dL (0.1-1.2) 01/03/17 07:32 AST 18 units/L (5-40) 01/03/17 07:32 ALT 16 units/L (7-56) 01/03/17 07:32 Alkaline Phosphatase 103 units/L (35-129) 01/03/17 07:32 Total Creatine Kinase 224 units/L (55-170) H 01/02/17 21:00 CK-MB (CK-2) 2.5 ng/mL (0.0-4.0) 01/02/17 21:00 CK-MB (CK-2) Rel Index 1.1 (0-4) 01/02/17 21:00 Troponin T < 0.010 ng/mL (0.00-0.029) 01/02/17 21:00 Total Protein 6.4 g/dL (6.3-8.2) 01/03/17 07:32 Albumin 3.9 g/dL (3.9-5) 01/03/17 07:32 Albumin/Globulin Ratio 1.6 % 01/03/17 07:32 Phenytoin 1.2 mg/L (10.0-20.0) L 01/02/17 11:12
--- NOTE | 2017-01-04 11:44 | Progress Note ---
Assessment and Plan 1. Atypical chest pain resolved 2. Syncope precipitated by inhaled chemical agent 3. Essential hypertension 4. Seizure disorder 5. Obesity Plan. Patient is currently stable serial cardiac isoenzymes are negative. Patient had Lexiscan MPI done is negative LV ejection fraction is normal. Cardiac zepeda stable. As per Hospitalist note Subjective Date of service: 01/04/17 Interval history: No cardiac symptoms. Objective Vital Signs Temp Pulse Pulse Pulse Pulse Resp Resp 01/04/17 09:53 98.4 F 88 18 01/04/17 08:25 92 H 16 01/04/17 08:16 87 17 01/04/17 05:40 96.9 F L 79 20 01/04/17 00:15 97.8 F 83 20 01/03/17 22:18 87 20 01/03/17 22:17 01/03/17 21:18 88 20 01/03/17 21:00 98.1 F 88 20 01/03/17 19:39 20 01/03/17 19:38 91 H 01/03/17 15:18 92 H 01/03/17 15:00 94 H 20 01/03/17 14:05 98 H 20 01/03/17 13:54 94 H 18 Resp BP Pulse Ox 01/04/17 09:53 160/83 94 01/04/17 08:25 01/04/17 08:16 01/04/17 05:40 175/104 98 01/04/17 00:15 137/89 97 01/03/17 22:18 98 01/03/17 22:17 22 01/03/17 21:18 01/03/17 21:00 158/114 98 01/03/17 19:39 98 01/03/17 19:38 01/03/17 15:18 01/03/17 15:00 99 01/03/17 14:05 01/03/17 13:54 - Physical Examination General: Appears Well, Other (obese) HEENT: Positive: PERRL, Mucus Membranes Moist Neck: Positive: neck supple, trachea midline. Negative: JVD/HJR Cardiac: Positive: Regular Rate, S1/S2, PMI, Laterally Displaced. Negative: Audible Murmur Lungs: Positive: clear to auscultation, No Wheeze, Rales, Rhonchi Neuro: Positive: Grossly Intact Abdomen: Positive: Soft, Active Bowel Sounds. Negative: Tender, Distended Skin: Positive: Clear Incision: Cardiac Cath Site Musculoskeletal: No Pain, Normal Range of Motion Extremities: Present: normal. Absent: edema - Imaging and Cardiology EKG: report reviewed (T-wave inversion in lead 3 compared to EKG earlier by EMS) - Telemetry EKG Rhythm: Sinus Rhythm - EKG Sinus rhythms and dysrhythmias: sinus rhythm
[2017-01-04] MEDS: MORPHINE IV PRN (12:30)
[2017-01-04] MEDS ORDERED: NORMODYNE IV PRN (15:26)
[2017-01-04] MEDS: NORVASC PO SCH ×2 (18:47→22:31)
[2017-01-04] MEDS: ABILIFY PO SCH (22:31)
[2017-01-05] MEDS: NORVASC PO SCH ×2 (09:17→21:04)
[2017-01-05] MEDS: ASPIRIN PO SCH (09:18)
[2017-01-05] MEDS: CYMBALTA PO SCH (09:18)
[2017-01-05] MEDS: LOVENOX SUB-Q SCH (09:18)
[2017-01-05] MEDS: DUONEB 0.5 MG-3 MG/3 ML SOLN IH SCH ×2 (09:59→20:00)
--- NOTE | 2017-01-05 14:14 | Progress Note ---
Subjective - Reason for Consult Consult date: 01/05/17 Reason for consult: Psychiatry Follow-up - Chief Complaint Chief complaint: "I feel so much better" 46 year old black male initially presented to the hospital for chest pain and was admitted. He was seen for psychiatric evaluation while on the medical floor. Today patient is calm and cooperative during the assessment. He stated that he feel so much better physically and mentally. He stated that the chemical that was in the air at his job probably caused him to hallucinate. He could not recall what he said on the initial psy consult about wanting to . He did state that he has struggled with depression for several years. He denies SI/HI's, AVH's, or depression symptoms. Patient was on CPAP when I arrived to his room. He denies any side effects of his psy medications. Mental Status Exam - Vital signs Last Vital Signs Temp 98.2 F 01/05/17 11:49 Pulse 103 H 01/05/17 11:49 Resp 20 01/05/17 11:49 BP 162/91 01/05/17 11:49 Pulse Ox 95 01/05/17 07:39 - Exam Narrative exam: MSE: Appearance: calm, cooperative Behavior: good eye contact Speech: regular rate and tone Mood: "okay" Affect: congruent to mood Thought Process: linear Thought Content: denies SI/HI's and AVH's Motor Activity: lying down in bed Cognition: A/Ox3 Insight: fair Judgment: fair Assessment and Plan Impression: Major depressive disorder, recurrent, severe, with psychotic features. 46 year old black male initially presented to the hospital for chest pain and was admitted. He was seen for psychiatric evaluation while on the medical floor. Today patient is calm and cooperative during the assessment. He stated that he feel so much better physically and mentally. He stated that the chemical that was in the air at his job probably caused him to hallucinate. Patient has had previous suicide attempts in the past. Last inpatient 08/2016 at [facility]. Medical: Epilepsy- on Dilantin (last seizure was 1 month ago), Sleep apnea, Obesity, HTN Recommendation/Plan: Continue 1013 with placement to inpatient psy services. Continue Cymbalta 60mg daily for depressive symptoms and Abilify 5mg daily as an adjunctive agent for depression. Educated on risks and benefits. Discussed obesity/cholesterol.
--- NOTE | 2017-01-05 16:00 | Progress Note ---
<KARENRIZWAN - Last Filed: 01/05/17 15:57> Assessment and Plan Atypical chest pain resolved negative MPI this admission Syncope precipitated by inhaled chemical agent Essential hypertension Seizure disorder Obesity Conservative cardiac management. Subjective Date of service: 01/05/17 Interval history: Patient denies chest pain and shortness of breath. Objective Vital Signs Temp Pulse Pulse Pulse Pulse Pulse Resp 01/05/17 15:46 98.2 F 94 H 20 01/05/17 11:49 98.2 F 103 H 20 01/05/17 09:56 89 01/05/17 07:39 98.2 F 95 H 20 01/05/17 03:56 98.3 F 81 20 01/05/17 00:30 98.5 F 80 20 01/04/17 23:32 95 H 20 01/04/17 22:31 80 01/04/17 21:25 89 01/04/17 21:15 80 01/04/17 20:15 80 20 01/04/17 19:55 22 01/04/17 19:17 82 01/04/17 19:00 22 Resp Resp Resp BP BP Pulse Ox 01/05/17 15:46 149/97 01/05/17 11:49 162/91 01/05/17 09:56 20 01/05/17 07:39 161/85 95 01/05/17 03:56 152/98 97 01/05/17 00:30 185/100 97 01/04/17 23:32 01/04/17 22:31 153/102 01/04/17 21:25 20 01/04/17 21:15 20 01/04/17 20:15 153/102 01/04/17 19:55 22 99 01/04/17 19:17 01/04/17 19:00 - Physical Examination General: Appears Well, Other (obese) HEENT: Positive: PERRL Neck: Positive: trachea midline Cardiac: Positive: Reg Rate and Rhythm Abdomen: Negative: Distended - Imaging and Cardiology EKG: report reviewed (T-wave inversion in lead 3 compared to EKG earlier by EMS) - EKG Sinus rhythms and dysrhythmias: sinus rhythm <DEXTER CHAUHAN - Last Filed: 01/05/17 20:39> Assessment and Plan Thank you for the consult. No further cardiac evaluation at this time. Please re -consult as needed. Objective Vital Signs Temp Pulse Pulse Pulse Pulse Pulse Resp 01/05/17 20:24 20 01/05/17 20:23 01/05/17 15:46 98.2 F 94 H 20 01/05/17 11:49 98.2 F 103 H 20 01/05/17 09:56 89 01/05/17 07:39 98.2 F 95 H 20 01/05/17 03:56 98.3 F 81 20 01/05/17 00:30 98.5 F 80 20 01/04/17 23:32 95 H 20 01/04/17 22:31 80 01/04/17 21:25 89 01/04/17 21:15 80 Resp Resp Resp BP BP Pulse Ox 01/05/17 20:24 96 01/05/17 20:23 22 01/05/17 15:46 149/97 01/05/17 11:49 162/91 01/05/17 09:56 20 01/05/17 07:39 161/85 95 01/05/17 03:56 152/98 97 01/05/17 00:30 185/100 97 01/04/17 23:32 01/04/17 22:31 153/102 01/04/17 21:25 20 01/04/17 21:15 20
--- NOTE | 2017-01-05 19:04 | Progress Note ---
Assessment and Plan Patient's 46-year-old morbidly obese male with a BMI of 49.2 and history of obstructive sleep apnea not on CPAP, atrial fibrillation on Coumadin and hypertension who presents with chest pain, syncopal episode after inhaling noxious substance there were. After breathing the irritant, he became nauseous , sweaty, fatigue, weak, dizzy and had a transient loss of consciousness followed by chest pain. Has auditory hallucination that been getting worse recently. Also has some suicidal ideation. Psych consult obtained. Psychiatric is following. -Chest pain: Stress test pending -Atrial fibrillation: Continue anticoagulation -Vasovagal syncope most likely -Suicidal ideation -with high-risk per psychiatrist. -Morbid obesity; accentuated by [place] and sensitivity medication and obesity -Essential hypertension: Optimize control by increasing amlodipine to 10 mg daily Obtain inpatient psychiatric placement Subjective Date of service: 01/05/17 Principal diagnosis: chest pain, atrial fibrillation, suicidal ideation, Interval history: Started having chest pain. Denies any further suicidal ideations Objective - Constitutional Vitals: Vital Signs - 12hr 01/05/17 01/05/17 01/05/17 07:39 09:56 11:49 Temperature 98.2 F 98.2 F Pulse Rate [ 89 Anterior Bilateral Throughout] Pulse Rate [ 95 H 103 H Left Radial] Respiratory 20 20 Rate Respiratory 20 Rate [Anterior Bilateral Throughout] Blood Pressure 161/85 162/91 [Left Arm] O2 Sat by Pulse 95 Oximetry 01/05/17 15:46 Temperature 98.2 F Pulse Rate [ Anterior Bilateral Throughout] Pulse Rate [ 94 H Left Radial] Respiratory 20 Rate Respiratory Rate [Anterior Bilateral Throughout] Blood Pressure 149/97 [Left Arm] O2 Sat by Pulse Oximetry General appearance: Present: no acute distress, obese - EENT Eyes: PERRL, EOM intact ENT: hearing intact, clear oral mucosa - Neck Neck: supple, normal ROM - Respiratory Respiratory effort: normal Respiratory: bilateral: CTA - Breasts Breasts: normal - Cardiovascular Rhythm: regular Heart Sounds: Present: S1 & S2. Absent: gallop, rub Extremities: pulses intact, No edema, normal color, Full ROM - Gastrointestinal General gastrointestinal: Present: soft, non-tender, non-distended, normal bowel sounds - Genitourinary Male genitourinary: normal - Integumentary Integumentary: clear, warm, dry - Musculoskeletal Musculoskeletal: 1, strength equal bilaterally - Neurologic Neurologic: moves all extremities - Psychiatric Psychiatric: memory intact, appropriate mood/affect, intact judgment & insight - Labs CBC & Chem 7: 01/03/17 07:32 01/03/17 07:32
[2017-01-05] MEDS: ABILIFY PO SCH (21:08)
[2017-01-06 06:56] LABS: Basophils % (Auto) 0.3 % (0.0-1.8); Eosinophils % (Auto) 2.6 % (0.0-4.3); Hematocrit 41.1 % (35.5-45.6); Hemoglobin 13.9 gm/dl (11.8-15.2); Mean Corpuscular HGB Conc 34 % (32-34); Mean Corpuscular Hemoglobin 30 pg (28-32); Mean Corpuscular Volume 87 fl (84-94); Platelet Count 152 K/mm3 (140-440); Red Blood Count 4.71 M/mm3 (3.65-5.03); Red Cell Distribution Width 14.6 % (13.2-15.2); White Blood Count 8.4 K/mm3 (4.5-11.0)
[2017-01-06 07:40] LABS: Alanine Aminotransferase 16 units/L (7-56); Albumin 3.9 g/dL (3.9-5); Albumin/Globulin Ratio 1.3 %; Alkaline Phosphatase 110 units/L (35-129); Anion Gap 18 mmol/L; Blood Urea Nitrogen 10 mg/dL (9-20); Calcium 9.2 mg/dL (8.4-10.2); Carbon Dioxide 26 mmol/L (22-30); Chloride 97.2 mmol/L (98-107); Glucose 100 mg/dL (75-100); Potassium 3.7 mmol/L (3.6-5.0); Sodium 137 mmol/L (137-145); Total Protein 6.8 g/dL (6.3-8.2)
[2017-01-06] MEDS: DUONEB 0.5 MG-3 MG/3 ML SOLN IH SCH ×2 (09:24→20:31)
[2017-01-06] MEDS: CYMBALTA PO SCH (10:51)
[2017-01-06] MEDS: ASPIRIN PO SCH (10:51)
[2017-01-06] MEDS: NORVASC PO SCH (10:51)
[2017-01-06] MEDS: LOVENOX SUB-Q SCH (10:52)
--- NOTE | 2017-01-06 15:13 | Progress Note ---
Subjective - Reason for Consult Consult date: 01/06/17 Reason for consult: psychiatric follow up - Chief Complaint Chief complaint: "They're back and forth [suicidal ideation]" 46 year old black male initially presented to the hospital for chest pain and was admitted. He was seen for psychiatric evaluation while on the medical floor. Today patient is calm and cooperative during the assessment. Today he is reporting no further hallucinations of hearing laughing. He last had AH 2 days ago (note that he reported to this author that these have occurred for years). He says the abilify is helping and he like cymbalta. He reports ongoing depression and suicidal thoughts which are back and forth. He denies a plan. He is focused on speaking with a social worker assistant about his housing. Mental Status Exam - Vital signs Last Vital Signs Temp 98.9 F 01/06/17 11:13 Pulse 98 H 01/06/17 11:13 Resp 20 01/06/17 11:13 BP 139/76 01/06/17 11:13 Pulse Ox 98 01/06/17 12:45 - Exam Narrative exam: MSE: Appearance: calm, cooperative Behavior: good eye contact Speech: regular rate and tone Mood: "okay" Affect: congruent to mood Thought Process: linear Thought Content: intermittent SI without a plan, no HI's and AVH's Motor Activity: lying down in bed Cognition: A/Ox3 Insight: fair Judgment: fair Assessment and Plan Impression: Suicidal risk is high and stabilization is necessary in a psychiatric facility Major depressive disorder, recurrent, severe, with psychotic features Consider sleep paralysis/parasomnia causing the perception of being touched while asleep Medical: Epilepsy- on Dilantin (last seizure was 1 month ago) Sleep apnea Obesity HTN Recommendation: 1013 and transfer to inpatient psychiatric facility for stabilization Continue Cymbalta 60mg daily for depressive symptoms Continue Abilify 5mg daily as an adjunctive agent for depression. Educated on risks and benefits. Discussed obesity/cholesterol
--- NOTE | 2017-01-06 20:33 | Progress Note ---
Assessment and Plan Patient's 46-year-old morbidly obese male with a BMI of 49.2 and history of obstructive sleep apnea not on CPAP, atrial fibrillation on Coumadin and hypertension who presents with chest pain, syncopal episode after inhaling noxious substance there were. After breathing the irritant, he became nauseous , sweaty, fatigue, weak, dizzy and had a transient loss of consciousness followed by chest pain. Has auditory hallucination that been getting worse recently. Also has some suicidal ideation. Psych consult obtained. Psychiatric is following. -Chest pain: Stress test pending -Atrial fibrillation: Continue anticoagulation -Vasovagal syncope most likely -Suicidal ideation -with high-risk per psychiatrist. -Morbid obesity; accentuated by [place] and sensitivity medication and obesity -Essential hypertension: Optimize control by increasing amlodipine to 10 mg daily Awaiting inpatient psychiatric placement Subjective Date of service: 01/06/17 Principal diagnosis: chest pain, atrial fibrillation, suicidal ideation, Interval history: No more chest pain Denies any further suicidal ideations Objective - Constitutional Vitals: Vital Signs - 12hr 01/06/17 01/06/17 01/06/17 09:24 09:31 10:51 Temperature Pulse Rate 102 H Pulse Rate [ 93 H 102 H Anterior Bilateral Throughout] Pulse Rate [ Left Radial] Respiratory Rate Respiratory 20 20 Rate [Anterior Bilateral Throughout] Blood Pressure 161/95 Blood Pressure [Left Arm] O2 Sat by Pulse Oximetry 01/06/17 01/06/17 01/06/17 11:13 12:45 15:44 Temperature 98.9 F Pulse Rate 98 H Pulse Rate [ Anterior Bilateral Throughout] Pulse Rate [ 98 H Left Radial] Respiratory 20 Rate Respiratory Rate [Anterior Bilateral Throughout] Blood Pressure Blood Pressure 139/76 [Left Arm] O2 Sat by Pulse 96 98 Oximetry 01/06/17 16:47 Temperature 98.7 F Pulse Rate Pulse Rate [ Anterior Bilateral Throughout] Pulse Rate [ 104 H Left Radial] Respiratory 20 Rate Respiratory Rate [Anterior Bilateral Throughout] Blood Pressure Blood Pressure 145/96 [Left Arm] O2 Sat by Pulse 97 Oximetry General appearance: Present: no acute distress, well-nourished - EENT Eyes: PERRL, EOM intact ENT: hearing intact, clear oral mucosa - Neck Neck: supple, normal ROM - Respiratory Respiratory effort: normal Respiratory: bilateral: CTA - Cardiovascular Rhythm: regular Heart Sounds: Present: S1 & S2. Absent: gallop, rub Extremities: pulses intact, No edema, normal color, Full ROM - Gastrointestinal General gastrointestinal: Present: soft, non-tender, non-distended, normal bowel sounds - Integumentary Integumentary: clear, warm, dry - Musculoskeletal Musculoskeletal: 1, strength equal bilaterally - Neurologic Neurologic: moves all extremities - Psychiatric Psychiatric: appropriate mood/affect, intact judgment & insight - Labs CBC & Chem 7: 01/06/17 05:55 01/06/17 05:55 Labs: Abnormal lab results 01/06/17 Range/Units 05:55 Chloride 97.2 L (98-107) mmol/L
[2017-01-06] MEDS: ABILIFY PO SCH (21:38)
--- NOTE | 2017-01-06 22:10 | Treadmill Report ---
ORDERING PHYSICIAN: Dr. Pena. INDICATION FOR THE PROCEDURE: Chest pain. FINDINGS: There is no scintigraphic evidence of myocardial ischemia. There is evidence of decreased counts noted in both the anterior and the inferior wall on stress imaging due to overlying attenuation artifact. The left ventricular ejection fraction is measured at 47% with normal wall motion and wall thickening. CONCLUSION: 1. No scintigraphic evidence of myocardial ischemia. 2. Normal left ventricular size with an ejection fraction measured at 47%. 3. This is a low risk myocardial perfusion scan associated with one year cardiovascular mortality of less than 1%. JOB# [id number] RUFUS/ELSIE
--- NOTE | 2017-01-07 09:12 | Progress Note ---
Subjective - Reason for Consult Consult date: 01/07/17 Reason for consult: Psychiatry Follow-up - Chief Complaint Chief complaint: "I don't have the SI's" 46 year old black male initially presented to the hospital for chest pain and was admitted. He was seen for psychiatric evaluation while on the medical floor. Today patient is calm and cooperative during the assessment. Patient was sitting in chair and talking with the sitter upon my arrival. He stated that he "feels better" and denies SI'/HI's. He rate his depression 3/10, with 10 being the worse. He denies hearing voices the last 3 days. Once discharged he wants assistance finding better housing. He stated that he has a "good" appetite. He denies any side effects of his psy medications. Mental Status Exam - Vital signs Last Vital Signs Temp 97.9 F 01/06/17 21:00 Pulse 90 01/07/17 04:05 Resp 19 01/07/17 04:05 BP 142/69 01/06/17 21:00 Pulse Ox 98 01/07/17 04:05 - Exam Narrative exam: MSE: Appearance: calm, cooperative Behavior: good eye contact Speech: regular rate and tone Mood: "okay" Affect: congruent to mood Thought Process: linear Thought Content: denies SI/HI's and AVH's Motor Activity: lying down in bed Cognition: A/Ox3 Insight: fair Judgment: fair Assessment and Plan mpression: Major depressive disorder, recurrent, severe, with psychotic features. 46 year old black male initially presented to the hospital for chest pain and was admitted. He was seen for psychiatric evaluation while on the medical floor. Today patient is calm and cooperative during the assessment. Patient was sitting in chair and talking with the sitter upon my arrival. He stated that he "feels better" and denies SI'/HI's. He rate his depression 3/10, with 10 being the worse. Last inpatient 08/2016 at [facility]. Medical: Epilepsy- on Dilantin (last seizure was 1 month ago), Sleep apnea, Obesity, HTN Recommendation/Plan: Continue 1013 with placement to inpatient psy services. Continue Cymbalta 60mg daily for depressive symptoms and Abilify 5mg daily as an adjunctive agent for depression. Educated on risks and benefits. Discussed obesity/cholesterol.
[2017-01-07] MEDS: DUONEB 0.5 MG-3 MG/3 ML SOLN IH SCH ×2 (09:16→20:41)
[2017-01-07] MEDS: LOVENOX SUB-Q SCH (09:58)
[2017-01-07] MEDS: ASPIRIN PO SCH (09:58)
[2017-01-07] MEDS: CYMBALTA PO SCH (09:58)
[2017-01-07] MEDS: NORVASC PO SCH (18:25)
[2017-01-07] MEDS: ABILIFY PO SCH (21:32)
[2017-01-08] MEDS: DUONEB 0.5 MG-3 MG/3 ML SOLN IH SCH ×2 (10:44→22:15)
--- NOTE | 2017-01-08 10:45 | Progress Note ---
Assessment and Plan Assessment and plan: Patient's 46-year-old morbidly obese male with a BMI of 49.2 and history of obstructive sleep apnea not on CPAP, atrial fibrillation on Coumadin and hypertension who presents with chest pain, syncopal episode after inhaling noxious substance there were. After breathing the irritant, he became nauseous , sweaty, fatigue, weak, dizzy and had a transient loss of consciousness followed by chest pain. -Vasovagal syncope most likely -Chest pain: Stress test negative per Dr. Samuel -Atrial fibrillation: Continue anticoagulation With discharged if stress test negative===>d/c held due to below "Things are not going right for me." 46 year old black male initially presented to the hospital for chest pain and was admitted. He was seen for psychiatric evaluation while on the medical floor. Psychiatry was consulted for reports of severe depression and auditory hallucinations of hearing people laughing. He reports being depressed and having AH for years but worse in the past 2 months. He believes people are touching him in his sleep. He states he wants to give up and has attempted to several times in his life. He attempted by walking into traffic in August,. He went to [place] at that time. He describes himself to be unstable and is finding it increasingly difficult to cope with his situation. He has applied for mental health disability. Recommendation: 1013 and transfer to inpatient psychiatric facility for stabilization, Continue Cymbalta 60mg daily for depressive symptoms, Add Abilify 5mg daily as an adjunctive agent for depression. Educated on risks and benefits. Discussed obesity/cholesterol Medically stable to go to psych facility History Interval history: Patient seen and examined. Follow up on chest pain which has resolved. Overnight uneventful. No cp, sob, n/v or severe headaches. Imaging, old records , testing, labs, nursing notes reviewed. Hospitalist Physical - Physical exam Narrative exam: GEN: WDWN, NAD, AWAKE, ALERT, ORIENTATED 3, BMI 48.7 HEENT: NCAT, PERRL, EOMI, OP CLEAR NECK: SUPPLE, NO THYROMEGALY, NO JVD, NO LAD CVS: RRR, NORMAL S1S2 LUNGS/CHEST: CTA B, NORMAL CHEST EXPANSION B, GOOD AIR ENTRY B ABD: SOFT NTND, GBS, NO REBOUND OR GUARDING EXT/SKIN: NO SIGNIFICANT EDEMA OR RASH MSK: FROM X 4 EXTREMITIES NEURO: CN 2-12 GROSSLY INTACT, NO FOCAL DEFICITS PSY: CALM - Constitutional Vitals: Temp Pulse Resp BP Pulse Ox 98.3 F 98 H 20 150/101 93 01/08/17 08:00 01/08/17 08:00 01/08/17 08:00 01/08/17 08:00 01/08/17 08:00 General appearance: Present: no acute distress, well-nourished Results - Labs CBC & Chem 7: 01/06/17 05:55 01/06/17 05:55 Labs: Laboratory Last Values WBC 8.4 K/mm3 (4.5-11.0) 01/06/17 05:55 RBC 4.71 M/mm3 (3.65-5.03) 01/06/17 05:55 Hgb 13.9 gm/dl (11.8-15.2) 01/06/17 05:55 Hct 41.1 % (35.5-45.6) 01/06/17 05:55 MCV 87 fl (84-94) 01/06/17 05:55 MCH 30 pg (28-32) 01/06/17 05:55 MCHC 34 % (32-34) 01/06/17 05:55 RDW 14.6 % (13.2-15.2) 01/06/17 05:55 Plt Count 152 K/mm3 (140-440) 01/06/17 05:55 Lymph % (Auto) 20.5 % (13.4-35.0) 01/06/17 05:55 Davie % (Auto) 6.6 % (0.0-7.3) 01/06/17 05:55 Eos % (Auto) 2.6 % (0.0-4.3) 01/06/17 05:55 Baso % (Auto) 0.3 % (0.0-1.8) 01/06/17 05:55 Lymph # 1.7 K/mm3 (1.2-5.4) 01/06/17 05:55 Davie # 0.6 K/mm3 (0.0-0.8) 01/06/17 05:55 Eos # 0.2 K/mm3 (0.0-0.4) 01/06/17 05:55 Baso # 0.0 K/mm3 (0.0-0.1) 01/06/17 05:55 Seg Neutrophils % 70.0 % (40.0-70.0) 01/06/17 05:55 Seg Neutrophils # 5.9 K/mm3 (1.8-7.7) 01/06/17 05:55 PT 13.4 Sec. (12.2-14.9) 01/02/17 11:00 INR 1.03 (0.87-1.13) 01/02/17 11:00 APTT 23.1 Sec. (24.2-36.6) L 01/02/17 11:00 Sodium 137 mmol/L (137-145) 01/06/17 05:55 Potassium 3.7 mmol/L (3.6-5.0) 01/06/17 05:55 Chloride 97.2 mmol/L (98-107) L 01/06/17 05:55 Carbon Dioxide 26 mmol/L (22-30) 01/06/17 05:55 Anion Gap 18 mmol/L 01/06/17 05:55 BUN 10 mg/dL (9-20) 01/06/17 05:55 Creatinine 1.0 mg/dL (0.8-1.5) 01/06/17 05:55 Estimated GFR > 60 ml/min 01/06/17 05:55 BUN/Creatinine Ratio 10.00 % 01/06/17 05:55 Glucose 100 mg/dL (75-100) 01/06/17 05:55 Calcium 9.2 mg/dL (8.4-10.2) 01/06/17 05:55 Total Bilirubin 0.30 mg/dL (0.1-1.2) 01/06/17 05:55 AST 18 units/L (5-40) 01/06/17 05:55 ALT 16 units/L (7-56) 01/06/17 05:55 Alkaline Phosphatase 110 units/L (35-129) 01/06/17 05:55 Total Creatine Kinase 224 units/L (55-170) H 01/02/17 21:00 CK-MB (CK-2) 2.5 ng/mL (0.0-4.0) 01/02/17 21:00 CK-MB (CK-2) Rel Index 1.1 (0-4) 01/02/17 21:00 Troponin T < 0.010 ng/mL (0.00-0.029) 01/02/17 21:00 Total Protein 6.8 g/dL (6.3-8.2) 01/06/17 05:55 Albumin 3.9 g/dL (3.9-5) 01/06/17 05:55 Albumin/Globulin Ratio 1.3 % 01/06/17 05:55 Phenytoin 1.2 mg/L (10.0-20.0) L 01/02/17 11:12
[2017-01-08] MEDS: NORVASC PO SCH (11:00)
[2017-01-08] MEDS: ASPIRIN PO SCH (11:00)
[2017-01-08] MEDS: LOVENOX SUB-Q SCH (11:00)
[2017-01-08] MEDS: CYMBALTA PO SCH (11:00)
--- NOTE | 2017-01-08 16:41 | Progress Note ---
Subjective - Reason for Consult Consult date: 01/08/17 Reason for consult: psychiatric follow up - Chief Complaint Chief complaint: "I am much better now" 46 year old black male initially presented to the hospital for chest pain and was admitted. He was seen for psychiatric evaluation while on the medical floor. Today patient is calm and cooperative during the assessment.He stated that he "feels better" and denies SI/HI. He rate his depression 3/10, with 10 being the worse. He denies hearing voices the last 4 days. Once discharged he wants assistance finding better housing. He has plan to go to [place] or [facility] for outpatient prescription assistance and medical/psychiatric treatment. He denies any side effects of his psy medications. Mental Status Exam - Vital signs Last Vital Signs Temp 98.6 F 01/08/17 16:31 Pulse 97 H 01/08/17 16:31 Resp 18 01/08/17 16:31 BP 159/103 01/08/17 16:31 Pulse Ox 93 01/08/17 08:00 - Exam Narrative exam: MSE: Appearance: calm, cooperative Behavior: good eye contact Speech: regular rate and tone Mood: "good" Affect: congruent to mood Thought Process: linear Thought Content:Denies SI, no HI's and no AVH's Motor Activity: within normal limits. Cognition: A/Ox3 Insight: fair Judgment: fair Assessment and Plan Impression: Today there are no acute safety concerns. He reports feeling better and has consistently denies SI Major depressive disorder, recurrent, severe, with psychotic features-improving Consider sleep paralysis/parasomnia causing the perception of being touched while asleep Medical: Epilepsy- on Dilantin (last seizure was 1 month ago) Sleep apnea Obesity HTN Recommendation: Reevaluate in 24 hours to determine if patient's presentation is consistent and he maintains denial of SI. If so, we will rescind the 1013 tomorrow. Continue Cymbalta 60mg daily for depressive symptoms Continue Abilify 5mg daily as an adjunctive agent for depression. Outpatient mental health referrals will be provided
[2017-01-08] MEDS: ABILIFY PO SCH (21:25)
[2017-01-09] MEDS: DUONEB 0.5 MG-3 MG/3 ML SOLN IH SCH (08:16)
[2017-01-09] MEDS: LOVENOX SUB-Q SCH (11:26)
[2017-01-09] MEDS: NORVASC PO SCH (11:26)
[2017-01-09] MEDS: ASPIRIN PO SCH (11:26)
[2017-01-09] MEDS: CYMBALTA PO SCH (11:26)
--- NOTE | 2017-01-09 16:09 | Progress Note ---
Subjective - Reason for Consult Consult date: 01/09/17 Reason for consult: psychiatric follow up - Chief Complaint Chief complaint: "I'm going to be ok" 46 year old black male initially presented to the hospital for chest pain and was admitted. He was seen for psychiatric evaluation while on the medical floor. Today patient is calm and cooperative during the assessment.He continues to denies suicidal ideation. He denies hearing voices the last 5 days. He denies side effects to the medication. Once discharged he wants assistance finding better housing. He has plan to go to [place] or [facility] for outpatient prescription assistance and medical/psychiatric treatment. There are no acute safety concerns. Mental Status Exam - Vital signs Last Vital Signs Temp 98.3 F 01/09/17 12:45 Pulse 94 H 01/09/17 12:45 Resp 20 01/09/17 12:45 BP 155/89 01/09/17 12:45 Pulse Ox 98 01/09/17 12:45 - Exam Narrative exam: MSE: Appearance: calm, cooperative Behavior: good eye contact Speech: regular rate and tone Mood: "good" Affect: congruent to mood Thought Process: linear Thought Content:Denies SI, no HI's and no AVH's Motor Activity: within normal limits. Cognition: A/Ox3 Insight: fair Judgment: fair Assessment and Plan Impression: Today there are no acute safety concerns. He reports feeling better and has consistently denied suicidal ideation Major depressive disorder, recurrent, severe, with psychotic features-psychotic symptoms have resolved. On initial evaluation there was discussion of possible parasomnia. Consider sleep paralysis/parasomnia causing the perception of being touched while asleep-sleep apnea addressed by medical team Medical: Epilepsy- on Dilantin Sleep apnea Obesity HTN Medical conditions have been addressed by the medical team. Medically cleared per note by the hospitalist Recommendation: Rescind 1013 as there are no acute safety concerns. At the time of interview, he presents as low risk of harm to self and expresses future and goal oriented thinking and planning. Recommended continuing psychiatric medications, Cymbalta 60mg daily for depressive symptoms and Abilify 5mg daily as an adjunctive agent for depression. Outpatient mental health referrals will be provided, to include [facility]/ [place].
[2017-01-09 18:27] VITALS: BP 149/90
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
== END 2017-01-09 17:50 | disposition home or self-care (01) | DRG 313 ==
LOC: ED 10:06 → 4A 12:24
PROVIDERS: ADMIT Internal Medicine; ATTEND Internal Medicine
PROC: 3E0234Z Introduction of Serum, Toxoid and Vaccine into Muscle, Percutaneous Approach (ICD-10-PCS; principal; 2017-01-02)
PROC: 4A02XM4 Measurement of Cardiac Total Activity, External Approach (ICD-10-PCS; 2017-01-02)
DX: R07.89 Other chest pain (principal); Z68.42 Body mass index [BMI] 45.0-49.9, adult; F33.3 Major depressive disorder, recurrent, severe with psychotic symptoms; R45.851 Suicidal ideations; R55 Syncope and collapse; I10 Essential (primary) hypertension; J45.909 Unspecified asthma, uncomplicated; G40.909 Epilepsy, unspecified, not intractable, without status epilepticus; G47.33 Obstructive sleep apnea (adult) (pediatric); I48.91 Unspecified atrial fibrillation; E66.01 Morbid (severe) obesity due to excess calories; Z79.01 Long term (current) use of anticoagulants; Z23 Encounter for immunization; Z82.49 Family history of ischemic heart disease and other diseases of the circulatory system
CPT/HCPCS: 36415; 71010; 78452; 80048; 80053; 80185; 80307; 82550; 82553; 84484; 85025; 85610; 85730; 90732; 93005; 93010; 93017; 94640; 94660; 96361; 96374; 96375; A9502; J1650; J2270; J2405; J2785; J7042

== ENCOUNTER 2017-02-11 13:45 | Emergency (ER) | payer OTHER ==
[2017-02-11 14:55] LABS: Basophils % (Auto) 0.2 % (0.0-1.8); Eosinophils % (Auto) 3.1 % (0.0-4.3); Hematocrit 43.8 % (35.5-45.6); Hemoglobin 14.3 gm/dl (11.8-15.2); Mean Corpuscular HGB Conc 33 % (32-34); Mean Corpuscular Hemoglobin 29 pg (28-32); Mean Corpuscular Volume 89 fl (84-94); Platelet Count 153 K/mm3 (140-440); Red Blood Count 4.93 M/mm3 (3.65-5.03); White Blood Count 7.8 K/mm3 (4.5-11.0)
[2017-02-11 15:55] LABS: Chloride 103.5 mmol/L (98-107); Potassium 4.1 mmol/L (3.6-5.0); Sodium 141 mmol/L (137-145)
[2017-02-11 15:56] LABS: Anion Gap 20 mmol/L; BUN/Creatinine Ratio 13.07; Blood Urea Nitrogen 17 mg/dL (9-20); Carbon Dioxide 22 mmol/L (22-30); Glucose 94 mg/dL (75-100)
[2017-02-12 09:18] LABS: Urine Drugs of Abuse Note Disclamer
[2017-02-12 09:41] LABS: Bacteria,Urine 1+ /HPF (Negative); Bilirubin,Urine NEG (Negative); Blood,Urine SM (Negative); Ketones,Urine NEG (Negative); Leukocyte Esterase,Urine LG (Negative); Mucus,Urine FEW /HPF; Nitrite,Urine NEG (Negative); Protein,Urine <15 mg/dL mg/dL (Negative); Urobilinogen,Urine < 2.0 mg/dL (<2.0)
--- NOTE | 2017-02-12 10:13 | Emergency Department Report ---
ED Chest Pain HPI - General Chief Complaint: Psych Stated Complaint: CHEST PAIN Time Seen by Provider: 02/12/17 10:02 Source: patient, EMS Mode of arrival: Ambulatory Limitations: No Limitations - History of Present Illness Initial Comments: 46-year-old male here with complaint of chest pain for the last several days. Feels like his heart is going to be at his chest. Describes the pain as pressure in the center of his chest does not radiate he has no shortness of breath with it. He also complains of some psychiatric issues and states that he didn't want to harm himself earlier but does not currently want harm himself. Requesting to go to psychiatric facility. He has no coronary history. He does have hypertension. No family history of coronary artery disease. MD Complaint: chest pain -: days(s) Onset: during rest, during exertion Pain Location: substernal Pain Radiation: none Severity: mild Severity scale (0 -10): 6 Quality: tightness Consistency: constant Improves With: nothing Worsens With: nothing - Related Data Home Medications Medication Instructions Recorded Confirmed Last Taken Albuterol 0.63% NEBS 0.63 inh Q2H PRN 02/12/17 02/12/17 Unknown DULoxetine [Cymbalta] 30 mg PO DAILY 02/12/17 02/12/17 Unknown Phenytoin Sodium Extended 60 mg PO DAILY 02/12/17 02/12/17 Unknown [Dilantin] cloNIDine [Catapres] 0.1 mg PO BID 02/12/17 02/12/17 Unknown Allergies Allergy/AdvReac Type Severity Reaction Status Date / Time No Known Allergies Allergy Verified 02/12/17 12:27 Heart Score - HEART Score History: Moderately suspicious EKG: Normal Age: 45-65 Risk factors: 1-2 risk factors Troponin: < normal limit HEART Score: 3 - Critical Actions Critical Actions: 0-3 pts:0.9-1.7%risk of adverse cardiac event.Candidate for discharge ED Review of Systems ROS: Stated complaint: CHEST PAIN Other details as noted in HPI Comment: All other systems reviewed and negative Constitutional: denies: chills, fever Eyes: denies: eye pain, eye discharge, vision change ENT: denies: ear pain, throat pain Respiratory: denies: cough, shortness of breath, wheezing Cardiovascular: denies: chest pain, palpitations Endocrine: no symptoms reported Gastrointestinal: denies: abdominal pain, nausea, diarrhea Genitourinary: denies: urgency, dysuria Musculoskeletal: denies: back pain, joint swelling, arthralgia Skin: denies: rash, lesions Neurological: denies: headache, weakness, paresthesias Psychiatric: anxiety, suicidal thoughts. denies: depression Hematological/Lymphatic: denies: easy bleeding, easy bruising ED Past Medical Hx - Past Medical History Previous Medical History?: Yes Hx Hypertension: Yes Hx Heart Attack/AMI: No Hx Congestive Heart Failure: No Hx Diabetes: No Hx Deep Vein Thrombosis: No Hx Pulmonary Embolism: No Hx Sickle Cell Disease: No Hx Seizures: Yes Hx Psychiatric Treatment: Yes (Anxiety, panic attacks, depression) Hx Asthma: Yes Hx COPD: No Hx Tuberculosis: No Hx Dementia: No Hx HIV: No - Surgical History Past Surgical History?: Yes Hx Coronary Stent: No Hx Open Heart Surgery: No Hx Pacemaker: No Hx Internal Defibrillator: No Hx Cholecystectomy: No Hx Appendectomy: No Hx Breast Surgery: No Additional Surgical History: Jersey Foot - Social History Smoking Status: Never Smoker Substance Use Type: None - Medications Home Medications: Home Medications Medication Instructions Recorded Confirmed Last Taken Type Albuterol 0.63% NEBS 0.63 inh Q2H PRN 02/12/17 02/12/17 Unknown History DULoxetine [Cymbalta] 30 mg PO DAILY 02/12/17 02/12/17 Unknown History Phenytoin Sodium Extended 60 mg PO DAILY 02/12/17 02/12/17 Unknown History [Dilantin] cloNIDine [Catapres] 0.1 mg PO BID 02/12/17 02/12/17 Unknown History ED Physical Exam - General Limitations: No Limitations General appearance: alert, in no apparent distress - Head Head exam: Present: atraumatic, normocephalic - Eye Eye exam: Present: normal appearance - ENT ENT exam: Present: mucous membranes moist - Neck Neck exam: Present: normal inspection - Respiratory Respiratory exam: Present: normal lung sounds bilaterally. Absent: respiratory distress - Cardiovascular Cardiovascular Exam: Present: regular rate, normal rhythm. Absent: systolic murmur, diastolic murmur, rubs, gallop - GI/Abdominal GI/Abdominal exam: Present: soft, normal bowel sounds - Rectal Rectal exam: Present: deferred - Extremities Exam Extremities exam: Present: normal inspection - Back Exam Back exam: Present: normal inspection - Neurological Exam Neurological exam: Present: alert, oriented X3 - Psychiatric Psychiatric exam: Present: normal affect, normal mood - Skin Skin exam: Present: warm, dry, intact, normal color. Absent: rash ED Course Vital Signs 02/11/17 02/12/17 02/12/17 14:03 00:51 08:54 Temperature 99 F 98.4 F Pulse Rate 97 H 87 83 Respiratory 16 18 16 Rate Blood Pressure 158/96 159/111 Blood Pressure 165/109 [Left] O2 Sat by Pulse 99 98 100 Oximetry 02/12/17 02/12/17 02/12/17 09:15 09:37 11:30 Temperature 98.1 F Pulse Rate 84 82 Respiratory 17 16 16 Rate Blood Pressure Blood Pressure 137/91 127/76 [Left] O2 Sat by Pulse 97 97 100 Oximetry RAÚL score - Raúl Score Age > 65: (0) No Aspirin use within the Past 7 Days: (0) No 3 or more CAD Risk Factors: (0) No 2 or more Angina events in past 24 hrs: (0) No Known CAD with more than 50% Stenosis: (0) No Elevated Cardiac Markers: (0) No ST Deviation Greater than 0.5mm: (0) No RAÚL Score: 0 ED Medical Decision Making - Lab Data Result diagrams: 02/11/17 14:22 02/11/17 14:22 Laboratory Results - last 24 hr 02/11/17 02/11/17 02/11/17 14:22 14:22 14:22 WBC 7.8 RBC 4.93 Hgb 14.3 Hct 43.8 MCV 89 MCH 29 MCHC 33 RDW 14.0 Plt Count 153 Lymph % (Auto) 17.0 [place] % (Auto) 9.0 H Eos % (Auto) 3.1 Baso % (Auto) 0.2 Lymph # 1.3 [place] # 0.7 Eos # 0.2 Baso # 0.0 Seg Neutrophils % 70.7 H Seg Neutrophils # 5.5 Sodium 141 Potassium 4.1 Chloride 103.5 Carbon Dioxide 22 Anion Gap 20 BUN 17 Creatinine 1.3 Estimated GFR 59 BUN/Creatinine Ratio 13.07 Glucose 94 Calcium 9.0 Troponin T < 0.010 Urine Color Urine Turbidity Urine pH Ur Specific [place] Urine Protein Urine Glucose (UA) Urine Ketones Urine Blood Urine Nitrite Urine Bilirubin Urine Urobilinogen Ur Leukocyte Esterase Urine WBC (Auto) Urine RBC (Auto) U Epithel Cells (Auto) Urine Bacteria (Auto) Urine Mucus Plasma/Serum Alcohol < 0.01 02/11/17 02/11/17 02/12/17 16:39 19:50 09:15 WBC RBC Hgb Hct MCV MCH MCHC RDW Plt Count Lymph % (Auto) [place] % (Auto) Eos % (Auto) Baso % (Auto) Lymph # [place] # Eos # Baso # Seg Neutrophils % Seg Neutrophils # Sodium Potassium Chloride Carbon Dioxide Anion Gap BUN Creatinine Estimated GFR BUN/Creatinine Ratio Glucose Calcium Troponin T < 0.010 < 0.010 Urine Color Yellow Urine Turbidity Clear Urine pH 5.0 Ur Specific [place] 1.024 Urine Protein <15 mg/dl Urine Glucose (UA) Neg Urine Ketones Neg Urine Blood Sm Urine Nitrite Neg Urine Bilirubin Neg Urine Urobilinogen < 2.0 Ur Leukocyte Esterase Lg Urine WBC (Auto) 44.0 H Urine RBC (Auto) 5.0 U Epithel Cells (Auto) 1.0 Urine Bacteria (Auto) 1+ Urine Mucus Few Plasma/Serum Alcohol Vital Signs 02/11/17 02/12/17 02/12/17 14:03 00:51 08:54 Temperature 99 F 98.4 F Pulse Rate 97 H 87 83 Respiratory 16 18 16 Rate Blood Pressure 158/96 159/111 Blood Pressure 165/109 [Left] O2 Sat by Pulse 99 98 100 Oximetry 02/12/17 02/12/17 09:15 09:37 Temperature 98.1 F Pulse Rate 84 Respiratory 17 16 Rate Blood Pressure Blood Pressure 137/91 [Left] O2 Sat by Pulse 97 97 Oximetry - EKG Data -: EKG Interpreted by Ga EKG shows normal: sinus rhythm (rate), axis, intervals, QRS complexes, ST-T waves ( 93) - Medical Decision Making 38-year-old male here with complaint of chest pain and psychiatric complaint. His clinical history is inconsistent with ACS is low risk on hard score history negative troponins. I do not feel he needs further cardiac workup at this point. I will initially 1013 the patient and have him evaluated by psychiatry. CT PE protocol negative. Patient stable for psychiatric evaluation. Portions of this chart were dictated with dictation software. There may be dictation errors contained within this note. Critical care attestation.: If time is entered above; I have spent that time in minutes in the direct care of this critically ill patient, excluding procedure time. ED Disposition Clinical Impression: Chest pain Disposition: DC/TX-65 PSY HOSP/PSY UNIT Is pt being admited?: No Condition: Stable Instructions: Chest Pain (ED) Referrals: PRIMARY CARE, [Primary Care Provider] - 3-5 Days
--- NOTE | 2017-02-12 11:12 | XRay Report ---
Chest 2 views: Compared to 01/02/17. History: Chest pain. Findings: Normal cardiomediastinal silhouette. Trachea is midline. No consolidation, pneumothorax or pleural effusion. Impression: No acute cardiopulmonary findings.
[2017-02-12] MEDS ORDERED: NACL ONE (12:25)
--- NOTE | 2017-02-12 13:47 | Cat Scan Report ---
CTA chest: History: Hypoxia, chest pain. Findings: No endobronchial or mediastinal mass. No mediastinal, hilar or axillary adenopathy. No pleural pericardial effusion. There is inadequate opacification noted of the secondary and tertiary branches of the right and left main pulmonary artery. There is no defects identified in the main pulmonary arteries. Normal lung parenchyma. Impression: No evidence of pulmonary embolism in the main pulmonary arteries. The secondary and tertiary branches not optimally visualized due to inadequate opacification and cannot be evaluated.
[2017-02-13] MEDS: CATAPRES PO SCH ×2 (10:00→22:38)
[2017-02-13] MEDS ORDERED: DILANTIN PO SCH (10:00)
[2017-02-13] MEDS: CYMBALTA PO SCH (10:00)
[2017-02-13] MEDS: DILANTIN PO SCH (11:20)
[2017-02-14] MEDS: CATAPRES PO SCH ×2 (10:26→22:16)
[2017-02-14] MEDS: CYMBALTA PO SCH (10:27)
[2017-02-14] MEDS: DILANTIN PO SCH (10:27)
[2017-02-15] MEDS: CYMBALTA PO SCH (11:00)
[2017-02-15] MEDS: DILANTIN PO SCH (11:00)
[2017-02-15] MEDS: CATAPRES PO SCH ×2 (11:00→23:43)
[2017-02-16] MEDS: CATAPRES PO SCH ×2 (10:14→23:05)
[2017-02-16] MEDS: CYMBALTA PO SCH (10:15)
[2017-02-16] MEDS: DILANTIN PO SCH (10:15)
--- NOTE | 2017-02-16 11:49 | Consultation ---
History of Present Illness - Reason for Consult Consult date: 02/16/17 Reason for consult: Mental Health Evaluation Requesting physician: CURT LIRA - Chief Complaint Chief complaint: "Depressed" - History of Present Psychiatric Illness 46-year-old male here with complaint of chest pain for the last several days. Today patient is calm and cooperative during the assessment. He stated not having a place stay at this time. He stated a hardship since moving from [place] several month ago. He stated not having a stable job/residence at this time. He stated that these issues has exacerbated his depression. Patient stated struggling with depression for several years. He stated having SI's for months before his admission to [facility]. Currently, the SI's "come and go," per the patient. He denies any suicidal attempts in the past. He denies AVH's, sleep disturbance, and a poor appetite. He denies recreational drug use and excessive alcohol consumption (etoh). Patient denies any side effects of medications. Medications and Allergies Allergies Allergy/AdvReac Type Severity Reaction Status Date / Time No Known Allergies Allergy Verified 02/12/17 12:27 Home Medications Medication Instructions Recorded Confirmed Last Taken Type Albuterol 0.63% NEBS 0.63 inh Q2H PRN 02/12/17 02/12/17 Unknown History DULoxetine [Cymbalta] 30 mg PO DAILY 02/12/17 02/12/17 Unknown History Phenytoin Sodium Extended 100 mg PO DAILY 02/12/17 02/13/17 Unknown History [Dilantin] cloNIDine [Catapres] 0.1 mg PO BID 02/12/17 02/12/17 Unknown History Active Meds: Active Medications Clonidine HCl (Catapres) 0.1 mg PO BID [facility] Last Admin: 02/16/17 10:14 Dose: 0.1 mg Duloxetine HCl (Cymbalta) 30 mg PO DAILY [facility] Last Admin: 02/16/17 10:15 Dose: 30 mg Phenytoin (Dilantin) 100 mg PO QDAY [facility] Last Admin: 02/16/17 10:15 Dose: 100 mg Past psychiatric history - Past Medical History Past Medical History: hypertension Past Surgical History: No surgical history - past Psychiatric treatment and history Psych: Depression psychiatric treatment history: Inpatient at [facility]. Denies a fam psy hx. - Social History Social history: other (HS Graduate, Homeless) Mental Status Exam - Vital signs Last Vital Signs Temp 98.9 F 02/15/17 23:46 Pulse 93 H 02/16/17 10:14 Resp 20 02/16/17 08:16 BP 175/103 02/16/17 10:14 Pulse Ox 97 02/16/17 08:16 - Exam Narrative exam: ROS (+) depression MSE: Appearance: calm, cooperative Behavior: regular eye contact Speech: regular rate and tone Mood: "exhausted" Affect: labile Thought Process: linear Thought Content: denies HI's and AVH's, passive SI's Motor Activity: sitting up in bed Cognition: A/Ox 3 Insight: fair Judgment: limited Results Result Diagrams: 02/11/17 14:22 02/11/17 14:22 All other labs normal. Assessment and Plan Assessment and plan: Impression: Historical Dx: Depressive DO. Today patient is calm and cooperative during the assessment. Passive SI's. Patient is homeless. DDx: R/O Bipolar Recommendation/Plan: Continue 1013 with placement to inpatient psy services. Continue Cymbalta 30 mg PO daily for depression. Discussed possible suicidality / medication induced davina with patient reference antidepressants. Case mgmt involvement, patient is homeless.
[2017-02-17] MEDS: CYMBALTA PO SCH (10:15)
[2017-02-17] MEDS: CATAPRES PO SCH ×2 (10:15→22:20)
[2017-02-17] MEDS: DILANTIN PO SCH (10:15)
[2017-02-17] MEDS ORDERED: MACROBID PO ONE (13:11)
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
[2017-02-18] MEDS: CATAPRES PO SCH ×2 (09:50→22:14)
[2017-02-18] MEDS: DILANTIN PO SCH (09:50)
[2017-02-18] MEDS: CYMBALTA PO SCH (09:50)
[2017-02-18] MEDS ORDERED: TYLENOL ONE (12:59)
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
[2017-02-19] MEDS: CATAPRES PO SCH ×2 (09:57→22:04)
[2017-02-19] MEDS: CYMBALTA PO SCH (09:58)
[2017-02-19] MEDS: DILANTIN PO SCH (09:58)
--- NOTE | 2017-02-19 14:09 | Progress Note ---
Subjective - Reason for Consult Consult date: 02/19/17 Reason for consult: Psychiatry Follow-up - Chief Complaint Chief complaint: "I feel much better" 46-year-old male presented to the ER with a primary complaint of chest pain and SI for the last several days. Today patient is calm and cooperative during the assessment. He stated that he would like to leave today. He denies SI/HI's, AVH' s, and depression. Patient denies any side effects of medications. Mental Status Exam - Vital signs Last Vital Signs Temp 98.7 F 02/18/17 20:50 Pulse 78 02/19/17 09:57 Resp 20 02/18/17 20:50 BP 159/89 02/19/17 09:57 Pulse Ox 99 02/18/17 20:50 - Exam Narrative exam: MSE: Appearance: calm, cooperative Behavior: regular eye contact Speech: regular rate and tone Mood: "okay" Affect: congruent to mood Thought Process: linear Thought Content: denies SI/HI's and AVH's Motor Activity: sitting up in bed Cognition: A/Ox 3 Insight: fair Judgment: fair I Assessment and Plan Impression: Historical Dx: Depressive DO. Today patient is calm and cooperative during the assessment. He denies SI/HI's. Patient is homeless. Patient is no harm to self or others. Recommendation/Plan: Rescind 1013. Continue Cymbalta 30 mg PO daily for depression. Discussed possible suicidality/medication induced davina with patient reference antidepressants. Vamp Liner involvement, patient is homeless. Patient given outpatient psy services information for his local area.
[2017-02-20] MEDS: CYMBALTA PO SCH (09:40)
[2017-02-20] MEDS: DILANTIN PO SCH (09:40)
[2017-02-20] MEDS: CATAPRES PO SCH (09:40)
[2017-02-20 10:48] VITALS: BP 142/100
== END 2017-02-20 11:50 ==
LOC: ED 13:45 → EEVIPCON 13:45 → ED 02-20 11:50
DX: R07.2 Precordial pain (principal); I10 Essential (primary) hypertension; F32.9 Major depressive disorder, single episode, unspecified; F41.9 Anxiety disorder, unspecified
CPT/HCPCS: 36415; 71020; 80048; 80307; 81001; 84484; 85025; 93005; 93010; 99285; G0480; 80320